=== PATIENT | male | born 1990 | race Caucasian/White ===

== ENCOUNTER 2016-11-16 15:54 | Inpatient (IN) | payer OTHER ==
[~2016-11-16] VITALS: Ht 188 cm; Wt 65.1 kg
[~2016-11-16 15:54] MED LIST: NICOTINE 21MG/24HR 1 EA TRANSDERMAL TD SCH; PRISTIQUE; TRAZ100T; TRAZ150T
[2016-11-16 17:00] LABS: MEAN CORPUSCULAR HEMOGLOBIN 29.6 pg (27.0-33.0); MEAN CORPUSCULAR HGB CONC 33.3 g/dl (32.0-36.5); MEAN CORPUSCULAR VOLUME 88.7 fl (80.0-96.0); RED CELL DISTRIBUTION WIDTH 13.1 % (11.5-14.5); WHITE BLOOD COUNT 6.5 K/mm3 (4.0-10.0)
[2016-11-16 17:13] LABS: AMPHETAMINES LEVEL URINE POSITIVE (NEGATIVE); BENZODIAZEPINES URINE POSITIVE (NEGATIVE); COCAINE METABOLITE URINE POSITIVE (NEGATIVE); CONTROL LINE INT CTR LINE PRESENT; METHADONE URINE POSITIVE (NEGATIVE); OPIATES URINE POSITIVE (NEGATIVE); TRICYCLIC ANTIDEPRESS URINE NEGATIVE (NEGATIVE)
[2016-11-16 17:27] LABS: ALBUMIN/GLOBULIN RATIO 1.48 (1.00-1.93); ALKALINE PHOSPHATASE 54 U/L (45-117); ALT/SGPT 16 U/L (12-78); ANION GAP 6 MEQ/L (8-16); AST/SGOT 6 U/L (15-37); BILIRUBIN,DIRECT 0.3 MG/DL (0.0-0.2); BILIRUBIN,TOTAL 1.4 MG/DL (0.2-1.0); BLOOD UREA NITROGEN 17 MG/DL (7-18); CALCIUM LEVEL 9.1 MG/DL (8.5-10.1); CARBON DIOXIDE LEVEL 30 MEQ/L (21-32); CHLORIDE LEVEL 109 MEQ/L (98-107); CREATININE FOR GFR 1.06 MG/DL (0.70-1.30); GLOMERULAR FILTRATION RATE > 60.0 (>60); GLUCOSE, FASTING 87 MG/DL (70-105); POTASSIUM SERUM 4.6 MEQ/L (3.5-5.1); SODIUM LEVEL 145 MEQ/L (136-145); TOTAL PROTEIN 6.7 GM/DL (6.4-8.2)
[2016-11-16] MEDS ORDERED: NICOTINE 21MG/24HR 1 EA TRANSDERMAL As Ordered ONE (18:14)
--- NOTE | 2016-11-16 19:51 | EDDOCDS ---
Physician Documentation [facility] Name: Gilbert Talley Age: 26 yrs Sex: Male : 1990 Arrival Date: 11/16/2016 Time: 15:54 Bed [facility] Private MD: Disposition: 11/16 18:37 Critical Care: Critical care not applicable. le Disposition: 11/16/16 18:48 Hospitalization ordered by Christel Starks for Inpatient Admission. Preliminary diagnosis are Major depressive disorder, recurrent, Suicidal ideations. - Bed requested for Admit. - Status is Inpatient Admission. slm - Condition is Stable. - Problem is an acute exacerbation. - Symptoms are unchanged. Historical: - Allergies: No known drug Allergies; - Home Meds: 1. Patient Denies taking any medications currently - PMHx: none; - PSHx: Tonsillectomy; - Social history: Smoking status: Patient uses tobacco products, heavy tobacco smoker. No barriers to communication noted. - Family history: Not pertinent. - : The pt / caregiver states he / she is not on anticoagulants. Home medication list is obtained from the patient. - Exposure Risk Screening:: None identified. Vital Signs: 16:14 BP 100 / 62; Pulse 95; Resp 16; Temp 98.6; Pulse Ox 99% ; Weight 69.85 kg / 153.99 lbs; [facility] Height 6 ft. 2 in. (187.96 cm); Pain 0/10; 19:45 BP 113 / 68; Pulse 84; Resp 18; Temp 98.4(TE); Pulse Ox 99% ; Pain 10/10; mas 16:14 Body Mass Index 19.77 (69.85 kg, 187.96 cm) [facility] MDM: 15:59 Consult PFS/PSA/Malt House Loader ordered. ml6 15:59 Consult PFS/PSA/Malt House Loader: Patient's case requires discussion with on-call 6 Psychiatrist ordered. 15:59 PSA/PFS to call Nursing Contemporary Or Modern Dancer, to enter patient data on [place] Safe Act if patient ml6 involuntarily admitted or transferred for SI or HI ordered. 15:59 Confirm accurate psychiatric medication list and times of last dosage ordered. ml6 15:59 Detain Pt Until Medically/PFS Cleared ordered. ml6 16:00 Acetaminophen Level Ordered. EDMS 16:00 Basic Metabolic Profile Ordered. EDMS 16:00 Complete Blood Count Ordered. EDMS 16:00 Drug Eval Toxicology ED Only Ordered. EDMS 16:00 Ethyl Alcohol (ethanol) Ordered. EDMS 16:00 Liver Profile Ordered. EDMS 16:00 Salicylate Level Ordered. EDMS 16:00 Thyroid Stimulating Hormone Ordered. EDMS 16:21 REGULAR DIET PLASTIC DUNBAR+DIET ordered. EDMS 17:41 Nicotine Patch 21 mg/24 hr 1 applic Transdermal once ordered. le 18:32 Acetaminophen Level Reviewed. le 18:32 Basic Metabolic Profile Reviewed. le 18:32 Drug Eval Toxicology ED Only Reviewed. le 18:32 Liver Profile Reviewed. le 18:32 Salicylate Level Reviewed. le 18:32 Complete Blood Count Reviewed. le 18:32 Ethyl Alcohol (ethanol) Reviewed. le 18:32 Thyroid Stimulating Hormone Reviewed. le 18:33 Consult PFS/PSA/Malt House Loader complete. ca 18:33 Consult PFS/PSA/Malt House Loader: Patient's case requires discussion with on-call ca Psychiatrist complete. 18:34 PSA/PFS to call Nursing Contemporary Or Modern Dancer, to enter patient data on [place] Safe [place] if patient ca involuntarily admitted or transferred for SI or HI complete. 18:37 The patient has been medically cleared for psychiatric evaluation, admission and/or le transfer. 18:44 OTHER CUSTOM DIETS+DIET ordered. EDMS 19:36 Admit to [facility]: ordered. EDMS 19:37 E Legal paperwork was scanned into [facility] and attached to record. ml4 Administered Medications: 18:45 Drug: Nicotine 1 applic [nicotine 21 mg/24 hr daily transdermal patch (1 patches)] [facility] Route: Transdermal; Site: right upper arm; Signatures: Dispatcher [employer] EDMS Mei Rodriguez, PSA PSA ca Anette Pride, PSA PSA ml4 Jo Mason, RUBBER TRIMMER RUBBER TRIMMER Ronnie Lopez, RN RN ml6 Emilee Melgoza RN RN [facility] Kita Harrell LPN LPN sl [facility]
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
[2016-11-16] MEDS ORDERED: MAALOX 30 ML SUSP *UDC PO PRN (20:15)
[2016-11-16] MEDS ORDERED: OXAZEPAM 15 MG CAP PO SCH (20:15)
[2016-11-16] MEDS ORDERED: MOM 30ML SUSPENSION UDC PO PRN (20:15)
[2016-11-16] MEDS: OLANZapine ORAL DISINTEGRATING TAB 5MG PO PRN (20:22)
[2016-11-16] MEDS ORDERED: OXAZEPAM 15 MG CAP PO PRN (20:30)
[2016-11-16 21:48] VITALS: BP 121/72
[2016-11-17 06:32] VITALS: BP 97/56
[2016-11-17] MEDS: NICOTINE 21MG/24HR 1 EA TRANSDERMAL TD SCH (08:18)
[2016-11-17] MEDS: OLANZapine ORAL DISINTEGRATING TAB 5MG PO PRN (08:18)
[2016-11-17 08:27] VITALS: BP 113/68
--- NOTE | 2016-11-17 11:20 | HPEPDOC ---
Medical History and Physical Date of Admission Nov 16, 2016 at 20:00 History and Physical PCP: Dr Russell ATTENDING: Dr. Casey Lizama HPI: 26yoM admitted to [facility] for unspecified depressive disorder, being medically examined today. Patient states he has mid back pain and low back pain. He denies neck pain. He reports no radiation of pain down the lower extremities. He denies weakness in lower extremities. No numbness or tingling in lower extremities. No loss of bowel or bladder control. He states he has had no previous imaging of his mid back or low back. Denies any fevers, chills, weakness, fatigue, MARTINEZ, CP, SOB, cough, palpitations, abdominal pain, N/V/D or changes in bowel or bladder habits. PMHx: Depression Anxiety Tobacco use Substance use Scoliosis PSHX: Tonsillectomy SOCHX: Resides in: [facility] Marital Status: Engaged Kids: 1 Employment: Works at [employer] Tobacco use: 2 packs per day ETOH: Denies Illicit Drugs: Heroin, OxyContin, hydrocodone, oxycodone, methadone, methamphetamine, Xanax IV Drug Use: Heroin, methamphetamine, oxycodone, OxyContin. States he was at [facility] 6 months ago. Has gone to "Rehab" x 7. Tattoos done unprofessionally: Denies FAMHX: Mother: Alive, currently hospitalized with hip surgery Father: , 6 years ago suicide- GSW. Siblings: Twin brothers Alive, well. Half brother, well. Children: Alive, well Unexpected deaths due to medical reasons: None. ROS: As noted in HPI, otherwise 11pt ROS of systems reviewed and unremarkable. PE: GEN: 26yoM, appears stated age. Well-nourished, well developed. No acute distress. Alert and oriented x 3. Pleasant, interactive. HEENT: Normocephalic, atraumatic. Pupils are equal, round, and reactive to light. Extraocular movements are intact. No nystagmus appreciated. Sclera are nonicteric. Conjunctiva without injection. Nose midline. Nasal turbinates without bogginess. EACs both patent BL. TMs both visualized and mandujano with good cone of light, no bulging or erythema. No facial asymmetry. Moist mucous membranes. Dentition fair. Pharynx pink and moist, no cobblestoning. Neck supple , trachea midline. No lymphadenopathy or thyromegaly appreciated. CHEST: Regular rate and rhythm, +S1, +S2 LUNGS: Clear to auscultation bilaterally. No wheezes, rales, or rhonchi. Breathing appears symmetric and easy. Patient is speaking in full sentences. No accessory muscle use. ABD: Flat, soft, non-distended. +Bowel sounds throughout. No TTP. No rebound or guarding. No costovertebral angle tenderness. EXT: Pulses 2+ bilaterally dorsalis pedis and radial. No lower extremity edema appreciated. SKIN: [place], dry, warm. Capillary refill <2sec. No rashes. NEURO: Alert and oriented x 3. Cranial nerves III-XII are intact. No focal deficits appreciated. Tenderness with palpation on exam over the thoracic spine and paraspinal muscles as well as the lumbar spine area and paraspinal muscles. There is normal strength in the lower extremities. Sensation to light touch is normal. He is ambulating in the hallway without any assistive devices and is able to get on and off the examination table without difficulty. Deep tendon reflexes at the knees are 2+ and symmetrical. EKG: Pending. A&P: 26yoM admitted to [facility] for unspecified depressive disorder 1. Psych. Plan per Psychiatry. Obtain baseline EKG to assure the safety of psychiatric medications as they can prolong the QT interval. 2. Nicotine dependence. Patch available. 3. Mid back pain. Check x-ray of the thoracic spine. 4. Low back pain. Check x-ray of the lumbosacral spine. 5. Follow up with PCP on discharge. Dr Russell. 6. Substance use. Withdrawal per psychiatry. Vital Signs Vital Signs Label Value Date Time Patient Temperature 95.2 degrees F 11/17/16 0632 Temperature Source Tympanic 11/17/16 0632 Pulse 85 11/17/16 0632 Respiratory Rate 18 bpm 11/17/16 0632 Blood Pressure Assessment 97/56 (70) 11/17/16 0632 Blood Pressure Assessment 113/68 (83) 11/17/16 0827 Laboratory Data Labs 24H Laboratory Tests 2 11/16/16 16:31: Acetaminophen Level < 2.0L, Aspartate Amino Transf (AST/SGOT) 6L, Alanine Aminotransferase (ALT/SGPT) 16, Alkaline Phosphatase 54, Total Bilirubin 1.4H, Direct Bilirubin 0.3H, Albumin 4.0, Albumin/Globulin Ratio 1.48, Anion Gap 6L, Calcium Level 9.1, Ethyl Alcohol Level < 0.003, Glomerular Filtration Rate > 60.0, Salicylates Level < 1.7L, Thyroid Stimulating Hormone (TSH) 1.190, Total Protein 6.7, Urine Amphetamine Level POSITIVEH, Urine Benzodiazepines Screen POSITIVEH, Urine Cannabinoids POSITIVEH, Urine Cocaine Metabolite POSITIVEH, Urine Opiates Screen POSITIVEH, Urine Barbiturates, Qualitative NEGATIVE, Urine Methadone Screen POSITIVEH, Urine Tricyclic Antidepressants NEGATIVE CBC/BMP Laboratory Tests 11/16/16 16:31 Red Blood Count 5.23, Mean Corpuscular Volume 88.7, Mean Corpuscular Hemoglobin 29.6, Mean Corpuscular Hemoglobin Concent 33.3, Red Cell Distribution Width 13.1 Home Medications No Active Prescriptions or Reported Meds Allergies Coded Allergies: No Known Drug Allergy (Verified Allergy, Unknown, 08/22/15) Viki Hendrix Nov 17, 2016 11:20
[2016-11-17 12:19] VITALS: BP 121/70
--- NOTE | 2016-11-17 17:13 | REP ---
Thoracic spine series: Two views: History: Thoracic spine pain. Findings: AP and lateral views show preserved vertebral body heights. Pedicles and posterior elements are intact. Alignment is normal. No paravertebral soft-tissue mass or swelling is seen. Impression: Negative thoracic spine series. Signed by Milton Henderson MD 11/18/2016 09:39 A
--- NOTE | 2016-11-17 17:18 | REP ---
Lumbar spine series: Five views: History: Lumbar spine pain. Findings: There is a minimal dextroconvex upper lumbar curve. Lumbar vertebral body heights are preserved. There is a bilateral L5 spondylolysis noted. There is a 3 mm L5-S1 grade 1 spondylolisthesis. Pedicles and posterior elements are otherwise intact. Sacrum and SI joints are unremarkable. Psoas margins are symmetric. Impression: Bilateral L5 spondylolysis and grade 1, 3 mm L5-S1 spondylolisthesis. No acute bony abnormality seen. Signed by Milton Henderson MD 11/18/2016 09:40 A
[2016-11-17] MEDS ORDERED: LOPERAMIDE 2 MG CAP PO PRN (17:45)
[2016-11-17] MEDS ORDERED: METHOCARBAMOL 750 MG TAB PO PRN (17:45)
[2016-11-17] MEDS ORDERED: ONDANSETRON 4 MG TAB (S0181) PO PRN (17:45)
[2016-11-17 18:00] VITALS: BP 112/70
[2016-11-17] MEDS: DIVALPROEX 250MG *ER* TAB PO SCH (19:12)
[2016-11-17] MEDS ORDERED: OXAZEPAM 15 MG CAP PO ONE (19:15)
[2016-11-17] MEDS: GABAPENTIN 100 MG CAP PO SCH (21:04)
[2016-11-17] MEDS: OXAZEPAM 10 MG CAP PO SCH (21:04)
[2016-11-17] MEDS: traZODone 50 MG TAB PO PRN (21:05)
[2016-11-17] MEDS: cloNIDine 0.1 MG TAB PO PRN (21:08)
[2016-11-17] MEDS: ACETAMINOPHEN TAB 650MG DOSE (2X325MG) PO PRN (23:41)
[2016-11-17 23:48] VITALS: BP 116/64
[2016-11-18] MEDS: GABAPENTIN 100 MG CAP PO SCH ×3 (06:06→20:43)
[2016-11-18 06:30] VITALS: BP 105/73
[2016-11-18] MEDS: NICOTINE 21MG/24HR 1 EA TRANSDERMAL TD SCH (09:00)
[2016-11-18] MEDS: DIVALPROEX 250MG *ER* TAB PO SCH ×2 (09:21→20:41)
[2016-11-18] MEDS: OXAZEPAM 10 MG CAP PO SCH ×2 (09:21→20:42)
[2016-11-18] MEDS: ACETAMINOPHEN TAB 650MG DOSE (2X325MG) PO PRN ×2 (09:22→20:42)
[2016-11-18 12:26] VITALS: BP 132/59
[2016-11-18] MEDS: cloNIDine 0.1 MG TAB PO PRN ×2 (14:12→22:48)
--- NOTE | 2016-11-18 18:10 | ECGEPIP ---
Stationary ECG Study [facility] Test Date: 2016-11-17 Pat Name: SALIMA GUILLORY Department: Room: [place] [address] Gender: M Ampoule Examiner: AILYN : 1990 Requested By: Viki Hendrix Order Number: [id number] Reading MD: Winston Begum Measurements Intervals [place] Rate: 84 P: 76 DC: 148 QRS: 81 QRSD: 89 T: 76 QT: 359 QTc: 425 Interpretive Statements SINUS RHYTHM WITH SINUS ARRHYTHMIA NO PRIOR TRACING IN THE SYSTEM Electronically Signed On 11-18-2016 18:09:58 EST by Winston Begum
[2016-11-18 18:17] VITALS: BP 130/68
[2016-11-18] MEDS: traZODone 50 MG TAB PO PRN (20:41)
--- NOTE | 2016-11-18 20:51 | EDDOCDS ---
Physician Documentation [facility] Name: Gilbert Talley Age: 26 yrs Sex: Male : 1990 Arrival Date: 11/16/2016 Time: 15:54 Bed [facility] Private MD: Disposition: 11/16 18:37 Critical Care: Critical care not applicable. le Disposition: 11/16/16 18:48 Hospitalization ordered by Christel Starks for Inpatient Admission. Preliminary diagnosis are Major depressive disorder, recurrent, Suicidal ideations. - Bed requested for Admit. - Status is Inpatient Admission. slm - Condition is Stable. - Problem is an acute exacerbation. - Symptoms are unchanged. Historical: - Allergies: No known drug Allergies; - Home Meds: 1. Patient Denies taking any medications currently - PMHx: none; - PSHx: Tonsillectomy; - Social history: Smoking status: Patient uses tobacco products, heavy tobacco smoker. No barriers to communication noted. - Family history: Not pertinent. - : The pt / caregiver states he / she is not on anticoagulants. Home medication list is obtained from the patient. - Exposure Risk Screening:: None identified. Vital Signs: 16:14 BP 100 / 62; Pulse 95; Resp 16; Temp 98.6; Pulse Ox 99% ; Weight 69.85 kg / 153.99 lbs; [facility] Height 6 ft. 2 in. (187.96 cm); Pain 0/10; 19:45 BP 113 / 68; Pulse 84; Resp 18; Temp 98.4(TE); Pulse Ox 99% ; Pain 10/10; mas 16:14 Body Mass Index 19.77 (69.85 kg, 187.96 cm) [facility] MDM: 15:59 Consult PFS/PSA/Mica [employer]er Blasting ordered. ml6 15:59 Consult PFS/PSA/Mica Miner Blasting: Patient's case requires discussion with on-call 6 Psychiatrist ordered. 15:59 PSA/PFS to call Nursing Manager Psychology, to enter patient data on [place] Safe Act if patient ml6 involuntarily admitted or transferred for SI or HI ordered. 15:59 Confirm accurate psychiatric medication list and times of last dosage ordered. ml6 15:59 Detain Pt Until Medically/PFS Cleared ordered. ml6 16:00 Acetaminophen Level Ordered. EDMS 16:00 Basic Metabolic Profile Ordered. EDMS 16:00 Complete Blood Count Ordered. EDMS 16:00 Drug Eval Toxicology ED Only Ordered. EDMS 16:00 Ethyl Alcohol (ethanol) Ordered. EDMS 16:00 Liver Profile Ordered. EDMS 16:00 Salicylate Level Ordered. EDMS 16:00 Thyroid Stimulating Hormone Ordered. EDMS 16:21 REGULAR DIET PLASTIC DUNBAR+DIET ordered. EDMS 17:41 Nicotine Patch 21 mg/24 hr 1 applic Transdermal once ordered. le 18:32 Acetaminophen Level Reviewed. le 18:32 Basic Metabolic Profile Reviewed. le 18:32 Drug Eval Toxicology ED Only Reviewed. le 18:32 Liver Profile Reviewed. le 18:32 Salicylate Level Reviewed. le 18:32 Complete Blood Count Reviewed. le 18:32 Ethyl Alcohol (ethanol) Reviewed. le 18:32 Thyroid Stimulating Hormone Reviewed. le 18:33 Consult PFS/PSA/Mica [employer]er Blasting complete. ca 18:33 Consult PFS/PSA/Mica [employer]er Blasting: Patient's case requires discussion with on-call ca Psychiatrist complete. 18:34 PSA/PFS to call Nursing Manager Psychology, to enter patient data on [place] Safe [place] if patient ca involuntarily admitted or transferred for SI or HI complete. 18:37 The patient has been medically cleared for psychiatric evaluation, admission and/or le transfer. 18:44 OTHER CUSTOM DIETS+DIET ordered. EDMS 19:36 Admit to [facility]: ordered. EDMS 19:37 MHE Legal paperwork was scanned into [employer] and attached to record. ml4 11/17 11:49 T-Sheet-- Draft Copy was scanned into [employer] and attached to record. gb Administered Medications: 11/16 18:45 Drug: Nicotine 1 applic [nicotine 21 mg/24 hr daily transdermal patch (1 patches)] [facility] Route: Transdermal; Site: right upper arm; Signatures: Dispatcher [employer] EDMS Mei Rodriguez, PSA PSA ca Lissy Yoon, Reg Reg gb Anette Pride, PSA PSA ml4 Jo Mason, METER MAKER Ronnie Argueta, RN RN ml6 Emilee Melgoza RN RN [facility] Kita Harrell LPN LPN slm The chart was reviewed and I authenticate all verbal orders and agree with the evaluation and treatment provided.Attachments: 11/17 11:49 T-Sheet-- Draft Copy gb Chart Complete MTDD
--- NOTE | 2016-11-18 20:51 | EDDOCDS ---
Nurse's Notes [facility] Name: Gilbert Talley Age: 26 yrs Sex: Male : 1990 Arrival Date: 11/16/2016 Time: 15:[address] MD: Diagnosis: Major depressive disorder, recurrent;Suicidal ideations Presentation: 11/16 16:12 Presenting complaint: Patient states: I don't know why I'm here, I saidsomething [facility] stupid, cant remember what it was and my grandmother called the tanning drum operator, she's the copyist caller, I was angry and I can't remember what I said. Mental Health Triage Level: Level 2: The patient was brought to the ED for evaluation because of a legal pickup order. Adult Sepsis Screening: The patient does not have new or worsening altered mentation. Patient's respiratory rate is less than 22. Systolic blood pressure is greater than 100. Patient has a qSOFA score of 0- Negative Sepsis Screen. Suicide/Homicide risk assessment- Patient denies SI and HI but presents with another emotional, behavioral or other mental health complaint. Status: Patient is not a propulsion machinery service engineer or dependent. Transition of care: patient was not received from another setting of care. 16:12 Acuity: RILEY Level 3 [facility] 16:12 Method Of Arrival: Police Car [facility] Triage Assessment: 16:14 General: Appears in no apparent distress, comfortable, slender, Behavior is sullen. [facility] Pain: Denies pain. HIV screening NA for this visit Offered previously. The patient is triaged at the bedside. See Assessment in Nurses Notes section of ED record. Neurological: Level of Consciousness is awake, alert, Oriented to person, place, time. Respiratory: Airway is patent Respiratory effort is even, unlabored, Respiratory pattern is regular, symmetrical. Derm: Skin is pink, warm & dry. Musculoskeletal: Range of motion intact in all extremities. Historical: - Allergies: No known drug Allergies; - Home Meds: 1. Patient Denies taking any medications currently - PMHx: none; - PSHx: Tonsillectomy; - Social history: Smoking status: Patient uses tobacco products, heavy tobacco smoker. No barriers to communication noted. - Family history: Not pertinent. - : The pt / caregiver states he / she is not on anticoagulants. Home medication list is obtained from the patient. - Exposure Risk Screening:: None identified. Screenin:16 Screening information is obtained from the patient. Fall risk: No risks identified. [facility] Assistance ADL's: requires no assistance with activities of daily living. Abuse/DV Screen: The patient / caregiver reports he/she is: not in a situation that causes fear, pain or injury. Nutritional screening: No deficits noted. Advance Directives: There is no active DNR order. home support is adequate. Assessment: 16:16 General: see bedside triage assessment. [facility] 17:30 General: utilizing phone, states feeling better since speaking with girlfriend. [facility] Provider informed regarding request for pain patch, will continue to monitor. 19:32 General: Appears in no apparent distress, comfortable, Behavior is appropriate for age, slm cooperative. General: pt sitting on stretcher s/o in room security observing . Respiratory: Airway is patent Respiratory effort is even, unlabored. 19:48 Reassessment: Patient appears in no apparent distress at this time. General: Appears in slm no apparent distress, Behavior is cooperative. General: pt transferred to [facility] at this time . Respiratory: Airway is patent Respiratory effort is even, unlabored. Mental Health Eval: 17:39 Mental health consult is initiated at 17:39. Status: The patient is not a md propulsion machinery service engineer or dependent. [facility] Behavioral Health: The patient is not an established patient of [facility] Behavioral Health. Referral Information: Evaluation referral is generated by a police agency: [employer] on . The patient was referred for evaluation because Police called by family after pt made suicidal threat and put gun in his mouth. Grandmother, with whom pt lives, also found a number of loose pills on the kitchen counter which pt acknowledged are his. Pt has a long hx of substance abuse. 17:53 Subjective: The patients chief complaint is Pt denies SI or HI. Appears angry, stating ca "My grandmother said that, didn't she?" Pt says he was upset about his relationship with GF, has now made up with her and "I'm fine." GM reported to police pt had been threatening to kill himself and had actually placed a gun in his mouth today. A number of loose pills were found at his home which pt acknowledged were his. Pt also admits there are guns in the house but continues to deny he threatened himself with one. Pt adds that "I just said something stupid, but denies he remembers what he said today." Police confirm there are guns in the household. Delusions are denied. Patient's mood is angry, anxious, depressed, irritable, Hallucinations are denied. Pt has significant hx of substance abuse and has been treated in outpt clinics for same. Today, tox screen is positive for a number of substances, which pt refuses to discuss. Pt is angry, demands he be allowed to leave when his GF arrives. Explained to pt that the doctor will decide if further care and hospitalization is needed. Pt threatening to do something that will send him to nursing home because that is where he'd rather be. Pt's father committed suicide 6 years ago. Pt was hospitalized shortly thereafter for the first time. Mental Health history: depression, abusing prescription drugs. marijuana. cocaine. methamphetamine. heroin. narcotics. methadone, benzodiazepines . suicide attempt by Stabbed self superficially in abdomen in 2009 and cut self. Mental Health Admissions: [facility] 2009 for SI and attempt Current Outpatient Mental Health Services: None. Current living environment is Family / Home Support: Poor supports The patient is single. Patient presents to Emergency Department with the following symptoms within the past 2 weeks: anger, depressed mood, drug abuse, non-compliance, poor impulse control, relational problem, suicidal ideation with attempt/gesture by gunshot. Reportedly placed gun in mouth today and told his grandmother he would shoot himself. Substance abuse: Patient uses benzodiazepines Patient uses cocaine, Patient uses heroin Patient uses marijuana Patient uses methamphetamines Patient uses opiates Patient uses tobacco. Mental status exam: Patients appearance is disheveled Patient's behavior is superficially cooperative Speech is normal. Affect is labile. Mood is angry. irritable. Hallucinations are denied. Appetite is erratic Memory is fair. Energy level is normal. Content of thought is Depressive Thought process is intact. Cognitive level is oriented to person, place, time and situation Patient's insight is poor. Judgement is poor. Rapport with interviewer is poor. guarded. hostile. Suicidal Ideation is denied. Homicidal ideation is denied. Disposition: Medically cleared for disposition by Jo CHAO Psychiatric Consult is performed by phone with Dr Christel Starks. [facility] Admission Criteria: The patient is experiencing suicidal ideation. 18:43 Legal Status: Patient's legal status will be Emergency admission: 9.39. [place] Safe Act: [facility] Safe Act is applicable to this patient. The patient poses a risk to self or other and the Nursing Fox Farmer has been notified. He/She will enter the patient's data. DSM-V Differential Diagnosis: Unspecified Depressive Disorder (F32.9) Cannabis Use Disorder, Opioid Use Disorder, Sedative, Hypnotic or Anxiolytic Use Disorder, Stimulant Use Disorder. 18:49 Narrative: Pt has had at least 2 previous rehabs at [facility] at age 18. md 11/17 16:20 Insurance Pre-Certification: approved by: Tina at [facility]. Pt is authorized for 5 md days (11/16-11/20) with review on 11/20. Reviewer has yet to be assigned. Auth number [id number]. Vital Signs: 11/16 16:14 BP 100 / 62; Pulse 95; Resp 16; Temp 98.6; Pulse Ox 99% ; Weight 69.85 kg; Height 6 ft. [facility] 2 in. (187.96 cm); Pain 0/10; 19:45 BP 113 / 68; Pulse 84; Resp 18; Temp 98.4(TE); Pulse Ox 99% ; Pain 10/10; mas 16:14 Body Mass Index 19.77 (69.85 kg, 187.96 cm) [facility] Vitals: 16:14 Log In time N/A- police car arrival. [facility] ED Course: 15:55 Patient visited by Yanelis Montes. gjb 15:55 Patient moved to Waiting gjb 15:56 Patient moved to [address] 16:06 Patient visited by Ray Nath Security Aide. pjf 16:13 Patient visited by Ray Nath Security Aide. pjf 16:13 Triage Initiated [facility] 16:14 Pt greeted and oriented to ED. Patient advised of names of staff involved in care, pj location of call owens, wait times and NPO status. Accompanied by Law Enforcement, (desp) 9.41. Property removed, secured in belongings bag- Placed in locker #3. Door closed. Noise minimized. Visitors limited. Report received from rn - psych. triage level #2, +si, cooperative \\T\\ this time. The patient / caregiver is instructed regarding the plan of care and ED course. Psych Safety Check: Location: Psych Room. 16:30 Psych Safety Check: Location: Psych Room. Visual Assessment: Cooperative. pjf 16:48 Patient visited by Ray Nath Security Aide. pjf 16:50 [facility] FNP [facility] le 17:06 Patient visited by Jo Mason FNP. le 17:06 Patient visited by Jo Mason FNP. le 17:12 Patient visited by Ray Nath Security Aide. pjf 17:37 Patient visited by Ray Nath Security Aide. pjf 17:52 Patient visited by Anette Pride PSA. ml4 18:04 Patient visited by Ray Nath Security Aide. pjf 18:17 Patient visited by Ray Nath Security Aide. pjf 18:36 Patient visited by Ray Nath Security Aide. pjf 18:47 Christel Starks is Hospitalizing Provider. le 18:56 Patient visited by Angelo Medina. mas 18:57 Kita Harrell LPN is Primary Nurse. slm 19:32 Patient visited by Angelo Medina. mas 19:33 Patient visited by Kita Harrell LPN. [facility] 19:37 E Legal paperwork was scanned into [employer] and attached to record. ml4 19:46 Patient visited by Angelo Medina. mas 19:49 No IV's were initiated during this patient's visit. No procedures done that require slm assistance. 19:50 Patient visited by Kita Harrell LPN. [facility] 11/17 11:49 T-Sheet-- Draft Copy was scanned into [employer] and attached to record. gb Administered Medications: 11/16 18:45 Drug: Nicotine 1 applic [nicotine 21 mg/24 hr daily transdermal patch (1 patches)] [facility] Route: Transdermal; Site: right upper arm; Attachments: 19:37 MHE Legal paperwork ml4 Order Results: Lab Order: Acetaminophen Level; SPEC'M 11/16/16 16:31 Test: ACETAMINOPHEN LEVEL; Value: < 2.0; Range: 10.0-30.0; Abnormal: Below low normal; Units: UG/ML; Status: F Lab Order: Basic Metabolic Profile; SPEC'M 11/16/16 16:31 Test: GLUCOSE, FASTING; Value: 87; Range: 70-105; Units: MG/DL; Status: F Test: BLOOD UREA NITROGEN; Value: 17; Range: 7-18; Units: MG/DL; Status: F Test: CREATININE FOR GFR; Value: 1.06; Range: 0.70-1.30; Units: MG/DL; Status: F Test: GLOMERULAR FILTRATION RATE; Value: > 60.0; Range: >60; Status: F Test: SODIUM LEVEL; Value: 145; Range: 136-145; Units: MEQ/L; Status: F Test: POTASSIUM SERUM; Value: 4.6; Range: 3.5-5.1; Units: MEQ/L; Status: F Test: CHLORIDE LEVEL; Value: 109; Range: 98-107; Abnormal: Above high normal; Units: MEQ/L; Status: F Test: CARBON DIOXIDE LEVEL; Value: 30; Range: 21-32; Units: MEQ/L; Status: F Test: ANION GAP; Value: 6; Range: 8-16; Abnormal: Below low normal; Units: MEQ/L; Status: F Test: CALCIUM LEVEL; Value: 9.1; Range: 8.5-10.1; Units: MG/DL; Status: F Test Note: ; Units are mL/min/1.73 m2 Chronic Kidney Disease Staging per NKF: Stage I & II GFR >=60 Normal to Mildly Decreased Stage III GFR 30-59 Moderately Decreased Stage IV GFR 15-29 Severely Decreased Stage V GFR <15 Very Little GFR Left ESRD GFR <15 on SUPERVISOR COFFEE Lab Order: Complete Blood Count; SPEC'M 11/16/16 16:31 Test: WHITE BLOOD COUNT; Value: 6.5; Range: 4.0-10.0; Units: K/mm3; Status: F Test: RED BLOOD COUNT; Value: 5.23; Range: 4.30-6.10; Units: M/mm3; Status: F Test: HEMOGLOBIN; Value: 15.4; Range: 14.0-18.0; Units: g/dl; Status: F Test: HEMATOCRIT; Value: 46.3; Range: 42.0-52.0; Units: %; Status: F Test: MEAN CORPUSCULAR VOLUME; Value: 88.7; Range: 80.0-96.0; Units: fl; Status: F Test: MEAN CORPUSCULAR HEMOGLOBIN; Value: 29.6; Range: 27.0-33.0; Units: pg; Status: F Test: MEAN CORPUSCULAR HGB CONC; Value: 33.3; Range: 32.0-36.5; Units: g/dl; Status: F Test: RED CELL DISTRIBUTION WIDTH; Value: 13.1; Range: 11.5-14.5; Units: %; Status: F Test: PLATELET COUNT, AUTOMATED; Value: 245; Range: 150-450; Units: k/mm3; Status: F Lab Order: Drug Eval Toxicology ED Only; SPEC'M 11/16/16 16:31 Test: AMPHETAMINES LEVEL URINE; Value: POSITIVE; Range: NEGATIVE; Abnormal: Above high normal; Status: F Test: BARBITURATES URINE; Value: NEGATIVE; Range: NEGATIVE; Status: F Test: BENZODIAZEPINES URINE; Value: POSITIVE; Range: NEGATIVE; Abnormal: Above high normal; Status: F Test: CANNABINOIDS URINE; Value: POSITIVE; Range: NEGATIVE; Abnormal: Above high normal; Status: F Test: COCAINE METABOLITE URINE; Value: POSITIVE; Range: NEGATIVE; Abnormal: Above high normal; Status: F Test: METHADONE URINE; Value: POSITIVE; Range: NEGATIVE; Abnormal: Above high normal; Status: F Test: OPIATES URINE; Value: POSITIVE; Range: NEGATIVE; Abnormal: Above high normal; Status: F Test: TRICYCLIC ANTIDEPRESS URINE; Value: NEGATIVE; Range: NEGATIVE; Status: F Test Note: ; FALSE POSITIVE RESULTS CAN BE CAUSED BY THE USE OF PANTOPRAZOLE (PROTONIX). Lab Order: Ethyl Alcohol (ethanol); SPEC'M 11/16/16 16:31 Test: ETHYL ALCOHOL (ETHANOL); Value: < 0.003; Range: 0.000-0.010; Units: %; Status: F Lab Order: Liver Profile; SPEC'M 11/16/16 16:31 Test: AST/SGOT; Value: 6; Range: 15-37; Abnormal: Below low normal; Units: U/L; Status: F Test: ALT/SGPT; Value: 16; Range: 12-78; Units: U/L; Status: F Test: ALKALINE PHOSPHATASE; Value: 54; Range: 45-117; Units: U/L; Status: F Test: BILIRUBIN,TOTAL; Value: 1.4; Range: 0.2-1.0; Abnormal: Above high normal; Units: MG/DL; Status: F Test: BILIRUBIN,DIRECT; Value: 0.3; Range: 0.0-0.2; Abnormal: Above high normal; Units: MG/DL; Status: F Test: TOTAL PROTEIN; Value: 6.7; Range: 6.4-8.2; Units: GM/DL; Status: F Test: ALBUMIN; Value: 4.0; Range: 3.2-5.2; Units: GM/DL; Status: F Test: ALBUMIN/GLOBULIN RATIO; Value: 1.48; Range: 1.00-1.93; Status: F Lab Order: Salicylate Level; SPEC'M 11/16/16 16:31 Test: SALICYLATE LEVEL; Value: < 1.7; Range: 5.0-30.0; Abnormal: Below low normal; Units: MG/DL; Status: F Lab Order: Thyroid Stimulating Hormone; SPEC'M 11/16/16 16:31 Test: THYROID STIMULATING HORMONE; Value: 1.190; Range: 0.358-3.740; Units: uIU/ML; Status: F Outcome: 11/16 18:48 Decision to Hospitalize by Provider. le 19:49 Discharge Assessment: Patient awake, alert and oriented x 3. No cognitive and/or slm functional deficits noted. Patient verbalized understanding of disposition instructions. patient administered narcotics - no. The following High Risk Discharge criteria are identified: None. Admitted to Psych accompanied by tech, via wheelchair, with chart. Condition: stable. No special radiology studies were completed. 19:50 Patient left the ED. slm Signatures: Madelin Mathis, Mei Joseph RN, PSA PSA Lissy Alvarado, Reg Reg Ray Singh, Security Aide Securpjf Anette Pride, PSA PSA ml4 Jo Mason, CHARTER COACH DRIVER CHARTER COACH DRIVER Angelo Fu Jane, RN RN Kita Enciso LPN LPN [facility] Yanelis Montes gjb Chart Complete MTDD
--- NOTE | 2016-11-18 20:51 | EDDOCDS ---
Physician Documentation [facility] Name: Gilbert Talley Age: 26 yrs Sex: Male : 1990 Arrival Date: 11/16/2016 Time: 15:54 Bed RUST3 Private MD: Disposition: 11/16 18:37 Critical Care: Critical care not applicable. le Disposition: 11/16/16 18:48 Hospitalization ordered by Christel Starks for Inpatient Admission. Preliminary diagnosis are Major depressive disorder, recurrent, Suicidal ideations. - Bed requested for Admit. - Status is Inpatient Admission. slm - Condition is Stable. - Problem is an acute exacerbation. - Symptoms are unchanged. Historical: - Allergies: No known drug Allergies; - Home Meds: 1. Patient Denies taking any medications currently - PMHx: none; - PSHx: Tonsillectomy; - Social history: Smoking status: Patient uses tobacco products, heavy tobacco smoker. No barriers to communication noted. - Family history: Not pertinent. - : The pt / caregiver states he / she is not on anticoagulants. Home medication list is obtained from the patient. - Exposure Risk Screening:: None identified. Vital Signs: 16:14 BP 100 / 62; Pulse 95; Resp 16; Temp 98.6; Pulse Ox 99% ; Weight 69.85 kg / 153.99 lbs; [facility] Height 6 ft. 2 in. (187.96 cm); Pain 0/10; 19:45 BP 113 / 68; Pulse 84; Resp 18; Temp 98.4(TE); Pulse Ox 99% ; Pain 10/10; mas 16:14 Body Mass Index 19.77 (69.85 kg, 187.96 cm) [facility] MDM: 15:59 Consult PFS/PSA/Sales Development Representative ordered. ml6 15:59 Consult PFS/PSA/Sales Development Representative: Patient's case requires discussion with on-call 6 Psychiatrist ordered. 15:59 PSA/PFS to call Nursing Marketing Services Coordinator, to enter patient data on [place] Safe Act if patient ml6 involuntarily admitted or transferred for SI or HI ordered. 15:59 Confirm accurate psychiatric medication list and times of last dosage ordered. ml6 15:59 Detain Pt Until Medically/PFS Cleared ordered. ml6 16:00 Acetaminophen Level Ordered. EDMS 16:00 Basic Metabolic Profile Ordered. EDMS 16:00 Complete Blood Count Ordered. EDMS 16:00 Drug Eval Toxicology ED Only Ordered. EDMS 16:00 Ethyl Alcohol (ethanol) Ordered. EDMS 16:00 Liver Profile Ordered. EDMS 16:00 Salicylate Level Ordered. EDMS 16:00 Thyroid Stimulating Hormone Ordered. EDMS 16:21 REGULAR DIET PLASTIC DUNBAR+DIET ordered. EDMS 17:41 Nicotine Patch 21 mg/24 hr 1 applic Transdermal once ordered. le 18:32 Acetaminophen Level Reviewed. le 18:32 Basic Metabolic Profile Reviewed. le 18:32 Drug Eval Toxicology ED Only Reviewed. le 18:32 Liver Profile Reviewed. le 18:32 Salicylate Level Reviewed. le 18:32 Complete Blood Count Reviewed. le 18:32 Ethyl Alcohol (ethanol) Reviewed. le 18:32 Thyroid Stimulating Hormone Reviewed. le 18:33 Consult PFS/PSA/Sales Development Representative complete. ca 18:33 Consult PFS/PSA/Sales Development Representative: Patient's case requires discussion with on-call ca Psychiatrist complete. 18:34 PSA/PFS to call Nursing Marketing Services Coordinator, to enter patient data on [place] Safe [place] if patient ca involuntarily admitted or transferred for SI or HI complete. 18:37 The patient has been medically cleared for psychiatric evaluation, admission and/or le transfer. 18:44 OTHER CUSTOM DIETS+DIET ordered. EDMS 19:36 Admit to [facility]: ordered. EDMS 19:37 MHE Legal paperwork was scanned into [employer] and attached to record. ml4 11/17 11:49 T-Sheet-- Draft Copy was scanned into [employer] and attached to record. gb Administered Medications: 11/16 18:45 Drug: Nicotine 1 applic [nicotine 21 mg/24 hr daily transdermal patch (1 patches)] [facility] Route: Transdermal; Site: right upper arm; Signatures: Dispatcher [employer] EDMS Mei Rodriguez, PSA PSA ca Lissy Yoon, Reg Reg gb Anette Pride, PSA PSA ml4 Jo Mason, COMPUTER NETWORK SUPPORT SPECIALIST Ronnie Argueta, RN RN ml6 Emilee Melgoza RN RN [facility] Kita Harrell LPN LPN slm The chart was reviewed and I authenticate all verbal orders and agree with the evaluation and treatment provided.Attachments: 11/17 11:49 T-Sheet-- Draft Copy gb Chart Complete MTDD
[2016-11-18 21:30] VITALS: BP 130/80
[2016-11-18 22:48] VITALS: BP 130/72
[2016-11-19] MEDS: GABAPENTIN 100 MG CAP PO SCH ×3 (06:17→21:01)
[2016-11-19 06:43] VITALS: BP 90/50
--- NOTE | 2016-11-19 06:57 | HPEPDOC ---
[facility] History & Physical History and Physical DATE OF ADMISSION: Nov 16, 2016 at 20:00 Patient was seen and this note reflects findings from 11/17/2016. 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 Patient presented by police escort to [facility] emergency department for evaluation after suicidal gesture. Police were called by patient's maternal grandmother who reported patient had a gun to his head and was making suicidal statements. Patient is currently living with his maternal grandparents. This in the context of current opiate, benzodiazepine , cocaine, amphetamine, and cannabis recent use. Patient was UDS positive for the stated illicit substances. Patient is restricted and details of identifying any triggers for this suicidal behavior. He reports history of chronic back pain due to diagnosis of scoliosis as his reasoning for these. He reports his substance abuse started approximately 5 years ago in an attempt to manage his pain. Patient recently discharged from [facility] rehabilitation. Patient reports no use of drug of choice IV heroin since his discharge from [facility] 6 months ago. Patient identifies that he has substituted the above-mentioned mentioned substances in lieu of IV heroin. Patient reports current use of by mouth Xanax and oxycodone tablets which she gets from the streets. He denies use of alcohol. He reports frequent use of cocaine that a mean and cannabis as well. Reports no depressive symptoms during interview. Affect is superficially bright. Patient is superficially in her view. Patient is focused on discharge. Of note patient's father committed suicide by gunshot wound 6 years ago. She does not identify this as a stressor. Patient was hospitalized after father's suicide. In 2009 he was hospitalized for suicide attempt by stabbing himself. Patient prescribed olanzapine he reports being noncompliant with medication immediately after discharge. Patient minimizes the suicide gesture which prompted his grandmother to call police. X-ray of lumbar and thoracic spine taken. These labs were within normal limits per radiology. Patient also has current legal stressors including a court hearing scheduled this week. Patient recently arrested for DWAI. He denies this was secondary to alcohol intoxication. He reports this is secondary to cannabis intoxication. Also patient recently given notice of an order of protection requested by his maternal grandmother. He is not to return to their home. PAST PSYCHIATRIC HISTORY: Prior Psychiatric Disorder: Polysubstance abuse, Depression Out Patient Treatment: none Suicidal/Self injurious: Patient has hx of suicide attempt in 2009 after of father who committed suicide Psychotropic Medication History: none since 2009 psychiatric admission for SA by stabbing self PMHx: Depression Anxiety Tobacco use Substance use Scoliosis PSHX: Tonsillectomy SOCHX: Resides in: [facility] with maternal grandparents Marital Status: Engaged Kids: 1 Employment: Works at [employer] Tobacco use: 2 packs per day ETOH: Denies Illicit Drugs: hx of IVHeroin use reports none for 6 months since [facility] inpatient rehab d/c. Also: current use of OxyContin, hydrocodone, oxycodone, methadone, methamphetamine, Xanax IV Drug Use: Heroin, methamphetamine, oxycodone, OxyContin. States he was at [facility] 6 months ago. Has gone to "Rehab" x 7. Tattoos done unprofessionally: Denies FAMHX: Mother: Alive, currently hospitalized with hip surgery Father: , 6 years ago suicide- GSW. Siblings: Twin brothers Alive, well. Half brother, well. Children: Alive, well Unexpected deaths due to medical reasons: None. SUBSTANCE ABUSE HISTORY: Patient reports hx of Scoliosis dx and chronic back pain. He reports his use of pain pills given him by a friend started his abuse of drugs approx. 4yrs ago. LEGAL HISTORY: Court hearing this week for recent DWAI, will miss due to this admission. ALLERGIES: Please see below. LABORATORY DATA: Please see below. MENTAL STATUS EXAMINATION: Patient is a 26year-old male, thin, anxious , tremulous who appears stated age. Speech: Is rapid in rate, volume, and articulation, and is coherent and spontaneous. Language skills are intact. Thought processes: linear/Goal directed. Thought content: focused on discharge Abstract reasoning, and computation: intact. Description of associations: appropriate. Description of abnormal or psychotic thoughts:no perceptual issues noted. Judgment: limited ,. Insight: very limited. Orientation to time, place and person is intact. Recent and remote memory: . Immediate short-term and long- term memory is: intact. Attention span and concentration: good . Language: Normal. Fund of knowledge- appropriate Mood: restricted Affect: constricted PROBLEM LIST: 1. Chronic substance use d/o symptoms. 2. recent legal issue- DWAI and order of protection. 3. recently homeless due to order of protection. 4. financial issues. DIAGNOSES: 1. Opioid use d/o, severe 2. Opioid w/d 3. Benzo use d/o, severe 4. Benzo w/d 5. Cannabis use d/o, severe 6. Amphetamine& Cocaine use d/o,severe 7. Depressive d/o, unspecified 8. r/o Bipolar 2 d/o. PLAN: 1.~ ~ Patient was admitted on a 30 legal status, 2.~ ~ Complete history was obtained. 3.~ ~ With patients permission, will be contacted for collateral information. 4.~ ~ Initiate CIWA-B monitoring Start Serax 30mg po BID for noted signs of Benzo w/d. D/C Olanzapine scheduled and PRN doses as this med decreases seizure threshold. Initiate opioid withdrawal medication regimen: Zofran 4mg po BID PRN nausea Loperamide 2mg PRN loose stools Methocarbamol 750mg po q6hr PRN muscle spasm Clonidine 0.1mg po TID PRN sweats, fever, tremor Gabapentin 200mg po q8hr for anxiety associated with w/d Depakote 250mg po BID for mood stabilization/ mood augmentation 5.~ ~ Patient will be provided with protected environment. 6.~ ~ Patient will be treated with individual, group, and milieu therapies. 7.~ ~ Patient will receive supportive psych-education. 8.~ ~ Discharge planning will commence immediately. 9.~ ~ Length of patients stay will be between 5-7 days 10.~ Outpatient follow-up treatment will be strongly recommended. ]. ESTIMATED LENGTH OF STAY: 5-7 days. TIME SPENT COUNSELING AND COORDINATING INITIAL CARE: 60 minutes. Medications No Active Prescriptions or Reported Meds Allergies Coded Allergies: No Known Drug Allergy (Verified Allergy, Unknown, 08/22/15) DANIE WARNER MD Nov 19, 2016 06:57
[2016-11-19] MEDS: OXAZEPAM 10 MG CAP PO SCH (08:57)
[2016-11-19] MEDS: DIVALPROEX 250MG *ER* TAB PO SCH ×2 (08:57→21:01)
[2016-11-19] MEDS: NICOTINE 21MG/24HR 1 EA TRANSDERMAL TD SCH (08:59)
--- NOTE | 2016-11-19 12:03 | IPNPDOC ---
[facility] Progress Note Progress Note DATE OF SERVICE: 11/18/16 SUBJECTIVE: Patient initiates this interview again focused on discharge. Patient reports he has requested a friend to pick him up on 11/20/2016 as he expects to discharge on Wednesday. Informed he was not told he was definitely discharging on Wednesday. He was told to cancel his friends ride. Patient is medically compliant. Today he reports no ongoing opioid or benzo withdrawal symptoms. Patient continues to report he had no gun and therefore had no weapon to his head prior to admission. Today he did sign a release of information that this provider can talk to his grandmother who called the authorities to report his suicidal statement. Patient continues to report in intensity of depression at 0/10. She reports intensely level of anxiety at 0/ 10. He continues to introduce ideas that he believes will cause this provider to quicken his discharge. He asked this provider to review the police report as as patient reports he was not found with a loaded weapon. He also continues to point to needing to get back to his job, pay his car note, and other duties which she feels if not taking care of tomorrow will cause him to lose his job and his car and his girlfriend. Patient asked to re-prioritize his mental health. Patient is medically compliant. Patient reports no medication side effects. Patient reports sleeping 7-8 hours last night. Appetite improving. Patient denies SI/HI, she also denies AH/VH. No bizarre behavior, thoughts, affect, or delusional thoughts expressed during this interview. VITAL SIGNS: Please see below. CURRENT MEDICATIONS: See below. MENTAL STATUS EXAMINATION: Patient is a calm, cooperative, thin, causasian male in NAD]. Speech: Is RRR and spontaneous]. Thought processes: [Linear & Goal directed.] Thought content: [focused on discharge, manipulation to achieve goal of discharge]. Description of abnormal or psychotic thoughts: [no perceptual issues] Judgment: [poor] Insight: [poor] Oriented to: [Time, place and person.] Recent and Remote Memory: [good]. Attention Span and Concentration: [good]. Fund of knowledge: [good] Mood: [restrictive]. Affect: [constricted]. ASSESSMENT: 1. Opioid use d/o, severe 2. Opioid w/d 3. Benzo use d/o, severe 4. Benzo w/d 5. Cannabis use d/o, severe 6. Amphetamine& Cocaine use d/o,severe 7. Depressive d/o, unspecified 8. r/o Bipolar 2 d/o. PLAN: 1. Continue CIWA-B monitoring 2. Continue Serax 30mg po BID for noted signs of Benzo w/d. 3. Continue opioid withdrawal medication regimen: Zofran 4mg po BID PRN nausea Loperamide 2mg PRN loose stools Methocarbamol 750mg po q6hr PRN muscle spasm Clonidine 0.1mg po TID PRN sweats, fever, tremor 4. Continue: Gabapentin 200mg po q8hr for anxiety associated with w/d Depakote 250mg po BID for mood stabilization/ mood augmentation 5. Patient will be provided with protected environment. 6. Patient will be treated with individual, group, and milieu therapies. 7. Patient will receive supportive psych-education. TIME SPENT: [30] minutes Vital Signs Vital Signs Date Time Temp Pulse Resp B/P Pulse Ox O2 Delivery O2 Flow Rate FiO2 11/19/16 06:43 96.6 82 16 90/50 Current Medications Current Medications Acetaminophen (Tylenol) 650 mg Q6HP PRN PO HEADACHE or DISCOMFORT Last administered on 11/18/16 20:42; Start 11/16/16 at 20:15; Stop 12/16/16 at 20:14 Al Hydrox/Mg Hydrox/Simethicone (Mylanta) 30 ml Q4HP PRN PO HEARTBURN/ INDIGESTION; Start 11/16/16 at 20:15; Stop 12/16/16 at 20:14 Clonidine HCl (Catapres) 0.1 mg TIDP PRN PO WITHDRAWAL SYMPTOMS Last administered on 11/18/16 22:48; Start 11/17/16 at 19:30; Stop 12/17/16 at 19:29 Divalproex Sodium (Depakote Er) 250 mg BID PO Last administered on 11/19/16 08 :57; Start 11/17/16 at 21:00; Stop 12/17/16 at 20:59 Gabapentin (Neurontin) 200 mg Q8H PO Last administered on 11/19/16 06:17; Start 11/17/16 at 22:00; Stop 12/17/16 at 21:59 Home Med (Med Rec Complete!) ASDIRECTED XX ; Start 11/16/16 at 19:30; Stop at 19:45; Status DC Loperamide HCl (Imodium) 2 mg ASDIRECTED PRN PO DIARRHEA; Start 11/17/16 at 17: 45; Stop 12/17/16 at 17:44 Magnesium Hydroxide (Milk Of Magnesia) 30 ml DAILYPRN PRN PO CONSTIPATION; Start 11/16/16 at 20:15; Stop 12/16/16 at 20:14 Methocarbamol (Robaxin) 750 mg Q6HP PRN PO MUSCLE SPASMS Last administered on 19:19; Start 11/17/16 at 17:45; Stop 12/17/16 at 17:44 Nicotine (Nicoderm Cq 21mg) 1 patch DAILY TD ; Start 11/16/16 at 09:00; Stop at 20:22; Status DC Nicotine (Nicoderm Cq 21mg) 1 patch DAILY TD Last administered on 11/17/16 08: 18; Start 11/17/16 at 09:00; Stop 12/17/16 at 08:59 Olanzapine (ZyPREXA ZYDIS) 5 mg Q6HP PRN PO AGITATION Last administered on 11/17/16 08:18; Start 11/16/16 at 20:15; Stop 11/17/16 at 17:47; Status DC Ondansetron HCl (Zofran) 4 mg Q12HP PRN PO NAUSEA Last administered on 19:12; Start 11/17/16 at 17:45; Stop 12/17/16 at 17:44 Oxazepam (Serax) 30 mg BID PO Last administered on 11/19/16 08:57; Start 11/17 at 21:00; Stop 11/24/16 at 20:59 Oxazepam (Serax) 30 mg Q4HP PO ; Start 11/16/16 at 20:15; Stop 11/16/16 at 20:24 ; Status DC Oxazepam (Serax) 30 mg Q4HP PRN PO WITHDRAWAL SYMPTOMS; Start 11/16/16 at 20:30 ; Stop 11/17/16 at 19:24; Status DC Trazodone HCl (Desyrel) 50 mg QHSP PRN PO INSOMNIA Last administered on t 20:41; Start 11/16/16 at 20:15; Stop 12/16/16 at 20:14 Allergies Coded Allergies: No Known Drug Allergy (Verified Allergy, Unknown, 08/22/15) DANIE WARNER MD Nov 19, 2016 12:03
[2016-11-19] MEDS ORDERED: NICO21PAT TD (12:50)
[2016-11-19 14:21] LABS: AMPHETAMINES LEVEL URINE POSITIVE (NEGATIVE); BENZODIAZEPINES URINE POSITIVE (NEGATIVE); COCAINE METABOLITE URINE NEGATIVE (NEGATIVE); CONTROL LINE INT CTR LINE PRESENT; METHADONE URINE NEGATIVE (NEGATIVE); OPIATES URINE POSITIVE (NEGATIVE); TRICYCLIC ANTIDEPRESS URINE NEGATIVE (NEGATIVE)
--- NOTE | 2016-11-19 14:49 | IPNPDOC ---
[facility] Progress Note Progress Note DATE OF SERVICE: 11/19/16 SUBJECTIVE: Patient initiates this interview again focused on discharge. Patient is medically compliant. Patient reports no medication side effects. Patient reports sleeping 7-8 hours last night. Appetite improving. Patient denies SI/HI, she also denies AH/VH. No bizarre behavior, thoughts, affect, or delusional thoughts expressed during this interview. VITAL SIGNS: Please see below. CURRENT MEDICATIONS: See below. MENTAL STATUS EXAMINATION: Patient is a calm, cooperative, thin, causasian male in NAD]. Speech: Is RRR and spontaneous]. Thought processes: [Linear & Goal directed.] Thought content: [focused on discharge, manipulation to achieve goal of discharge]. Description of abnormal or psychotic thoughts: [no perceptual issues] Judgment: [poor] Insight: [poor] Oriented to: [Time, place and person.] Recent and Remote Memory: [good]. Attention Span and Concentration: [good]. Fund of knowledge: [good] Mood: [restrictive]. Affect: [constricted]. ASSESSMENT: 1. Opioid use d/o, severe 2. Opioid w/d 3. Benzo use d/o, severe 4. Benzo w/d 5. Cannabis use d/o, severe 6. Amphetamine& Cocaine use d/o,severe 7. Depressive d/o, unspecified 8. r/o Bipolar 2 d/o. PLAN: 1. Discontinue CIWA-B monitoring 2. Begin taper of Serax from 30mg po BID to 15mg po BID for noted signs of Benzo w/d. 3. Discontinue opioid withdrawal medication regimen: Zofran 4mg po BID PRN nausea Loperamide 2mg PRN loose stools Methocarbamol 750mg po q6hr PRN muscle spasm Clonidine 0.1mg po TID PRN sweats, fever, tremor 4. Continue: Gabapentin 200mg po q8hr for anxiety associated with w/d Depakote 250mg po BID for mood stabilization/ mood augmentation 5. Patient will be provided with protected environment. 6. Patient will be treated with individual, group, and milieu therapies. 7. Patient will receive supportive psych-education. TIME SPENT: [30] minutes Vital Signs Vital Signs Date Time Temp Pulse Resp B/P Pulse Ox O2 Delivery O2 Flow Rate FiO2 11/19/16 06:43 96.6 82 16 90/50 Laboratory Data 24H Labs Laboratory Tests 2 11/19/16 13:00: Urine Amphetamine Level POSITIVEH, Urine Benzodiazepines Screen POSITIVEH, Urine Cannabinoids POSITIVEH, Urine Cocaine Metabolite NEGATIVE, Urine Opiates Screen POSITIVEH, Urine Barbiturates, Qualitative NEGATIVE, Urine Methadone Screen NEGATIVE, Urine Tricyclic Antidepressants NEGATIVE Current Medications Current Medications Acetaminophen (Tylenol) 650 mg Q6HP PRN PO HEADACHE or DISCOMFORT Last administered on 11/18/16 20:42; Start 11/16/16 at 20:15; Stop 12/16/16 at 20:14 Al Hydrox/Mg Hydrox/Simethicone (Mylanta) 30 ml Q4HP PRN PO HEARTBURN/ INDIGESTION Last administered on 11/19/16 12:20; Start 11/16/16 at 20:15; Stop 12/16/16 at 20:14 Clonidine HCl (Catapres) 0.1 mg TIDP PRN PO WITHDRAWAL SYMPTOMS Last administered on 11/18/16 22:48; Start 11/17/16 at 19:30; Stop 11/19/16 at 14:26 ; Status DC Divalproex Sodium (Depakote Er) 250 mg BID PO Last administered on 11/19/16 08 :57; Start 11/17/16 at 21:00; Stop 12/17/16 at 20:59 Gabapentin (Neurontin) 200 mg Q8H PO Last administered on 11/19/16 14:06; Start 11/17/16 at 22:00; Stop 12/17/16 at 21:59 Home Med (Med Rec Complete!) ASDIRECTED XX ; Start 11/16/16 at 19:30; Stop at 19:45; Status DC Loperamide HCl (Imodium) 2 mg ASDIRECTED PRN PO DIARRHEA; Start 11/17/16 at 17: 45; Stop 11/19/16 at 14:26; Status DC Magnesium Hydroxide (Milk Of Magnesia) 30 ml DAILYPRN PRN PO CONSTIPATION; Start 11/16/16 at 20:15; Stop 12/16/16 at 20:14 Methocarbamol (Robaxin) 750 mg Q6HP PRN PO MUSCLE SPASMS Last administered on 19:19; Start 11/17/16 at 17:45; Stop 11/19/16 at 14:26; Status DC Nicotine (Nicoderm Cq 21mg) 1 patch DAILY TD ; Start 11/16/16 at 09:00; Stop at 20:22; Status DC Nicotine (Nicoderm Cq 21mg) 1 patch DAILY TD Last administered on 11/17/16 08: 18; Start 11/17/16 at 09:00; Stop 12/17/16 at 08:59 Olanzapine (ZyPREXA ZYDIS) 5 mg Q6HP PRN PO AGITATION Last administered on 11/17/16 08:18; Start 11/16/16 at 20:15; Stop 11/17/16 at 17:47; Status DC Ondansetron HCl (Zofran) 4 mg Q12HP PRN PO NAUSEA Last administered on 19:12; Start 11/17/16 at 17:45; Stop 11/19/16 at 14:26; Status DC Oxazepam (Serax) 15 mg BID PO ; Start 11/19/16 at 21:00; Stop 11/26/16 at 20:59 Oxazepam (Serax) 30 mg BID PO Last administered on 11/19/16 08:57; Start 11/17 at 21:00; Stop 11/19/16 at 14:26; Status DC Oxazepam (Serax) 30 mg Q4HP PO ; Start 11/16/16 at 20:15; Stop 11/16/16 at 20:24 ; Status DC Oxazepam (Serax) 30 mg Q4HP PRN PO WITHDRAWAL SYMPTOMS; Start 11/16/16 at 20:30 ; Stop 11/17/16 at 19:24; Status DC Trazodone HCl (Desyrel) 50 mg QHSP PRN PO INSOMNIA Last administered on 20:41; Start 11/16/16 at 20:15; Stop 12/16/16 at 20:14 Allergies Coded Allergies: No Known Drug Allergy (Verified Allergy, Unknown, 08/22/15) DANIE WARNER MD Nov 19, 2016 14:49
[2016-11-19 18:00] VITALS: BP 101/60
[2016-11-19] MEDS: traZODone 50 MG TAB PO PRN (21:05)
[2016-11-19] MEDS: OXAZEPAM 15 MG CAP PO SCH (21:05)
[2016-11-19] MEDS ORDERED: LORazepam 2 MG TAB PO ONE (21:15)
[2016-11-20] MEDS: GABAPENTIN 100 MG CAP PO SCH ×2 (06:43→14:03)
[2016-11-20 06:52] VITALS: BP 107/59
[2016-11-20 06:54] VITALS: BP 107/59
[2016-11-20] MEDS: DIVALPROEX 250MG *ER* TAB PO SCH (08:14)
[2016-11-20] MEDS: OXAZEPAM 15 MG CAP PO SCH (08:14)
[2016-11-20] MEDS: NICOTINE 21MG/24HR 1 EA TRANSDERMAL TD SCH (08:14)
[2016-11-20] MEDS ORDERED: DEPA250T2 PO ×2 (14:01→14:16)
[2016-11-20] MEDS ORDERED: GABA-279 PO ×2 (14:01→14:16)
== END 2016-11-20 14:00 | disposition home or self-care (01) | DRG 753 ==
LOC: M ED 15:54 → M PSY 20:00
PROVIDERS: ADMIT Psychiatry & Neurology Psychiatry; ATTEND Psychiatry & Neurology Psychiatry
DX: F31.81 Bipolar II disorder (principal); F17.200 Nicotine dependence, unspecified, uncomplicated; M54.5 Low back pain

== ENCOUNTER 2016-12-30 23:28 | Emergency (ER) | payer BC, OTHER ==
[~2016-12-30] VITALS: Ht 188 cm; Wt 70.8 kg
[~2016-12-30 23:28] MED LIST changes: +DEPA250T2 PO; +GABA-279 PO; +NICO21PAT TD; -NICOTINE 21MG/24HR 1 EA TRANSDERMAL TD SCH
[2016-12-31 00:02] VITALS: BP 126/73
[2016-12-31] MEDS ORDERED: ADDE10CA PO (00:05)
== END 2016-12-31 01:37 | disposition home or self-care (01) ==
LOC: M ED 12-31 00:41
DX: F32.0 Major depressive disorder, single episode, mild (principal); F17.210 Nicotine dependence, cigarettes, uncomplicated; Z79.899 Other long term (current) drug therapy

== ENCOUNTER → 2017-12-20 | Outpatient (CLI) | payer OTHER, BC ==
[2017-12-20 10:22] LABS: BASO % 0.5 % (0.0-1.0); EOS # 0.4 10^3/uL (0.0-0.50); EOS % 6.1 % (0.0-3.0); HEMATOCRIT 44.1 % (42.0-52.0); IMMATURE GRANULOCYTE % 0.2 % (0-3.0); LYMPH # 2.9 10^3/uL (1.5-6.5); LYMPH % 47.8 % (24.0-44.0); MEAN CORPUSCULAR HEMOGLOBIN 28.3 pg (27.0-33.0); MEAN CORPUSCULAR VOLUME 83.2 fl (80.0-96.0); MONO # 0.5 10^3/uL (0.0-0.8); MONO % 8.9 % (0.0-5.0); NEUTROPHILS # 2.2 10^3/uL (1.8-7.7); NEUTROPHILS % 36.5 % (36.0-66.0); PLATELET COUNT, AUTOMATED 234 10^3/uL (150-450); RED CELL DISTRIBUTION WIDTH 11.9 % (11.5-14.5); WHITE BLOOD COUNT 6.1 10^3/uL (4.0-10.0)
[2017-12-20 10:45] LABS: APPEARANCE, URINE HAZY (CLEAR); BACTERIA, URINE AUTO NEGATIVE (NEGATIVE); BILIRUBIN, URINE AUTO NEGATIVE (NEGATIVE); BLOOD, URINE BLOOD NEGATIVE (NEGATIVE); COLOR, URINE YELLOW (YELLOW); GLUCOSE, URINE (UA) AUTO NEGATIVE (NEGATIVE); KETONE, URINE AUTO NEGATIVE (NEGATIVE); LEUKOCYTE ESTERASE, URINE AUTO NEGATIVE (NEGATIVE); MUCUS, URINE SMALL (NEGATIVE); NITRITE, URINE AUTO NEGATIVE (NEGATIVE); PROTEIN, URINE AUTO NEGATIVE (NEGATIVE); RBC, URINE AUTO 4 /HPF (0-3); SPECIFIC GRAVITY URINE AUTO 1.027 (1.002-1.035); SQUAMOUS EPITHELIAL CELL UR AU 0 /HPF (0-6); WBC, URINE AUTO 1 /HPF (0-3)
[2017-12-20 11:01] LABS: ALBUMIN/GLOBULIN RATIO 1.25 (1.00-1.93); ALKALINE PHOSPHATASE 85 U/L (45-117); ALT/SGPT 66 U/L (12-78); ANION GAP 7 MEQ/L (8-16); AST/SGOT 48 U/L (7-37); BILIRUBIN,TOTAL 1.2 MG/DL (0.2-1.0); BLOOD UREA NITROGEN 18 MG/DL (7-18); CALCIUM LEVEL 8.6 MG/DL (8.5-10.1); CARBON DIOXIDE LEVEL 30 MEQ/L (21-32); CHLORIDE LEVEL 104 MEQ/L (98-107); CREATININE FOR GFR 0.98 MG/DL (0.70-1.30); GLOMERULAR FILTRATION RATE > 60.0 (>60); GLUCOSE, FASTING 131 MG/DL (70-100); POTASSIUM SERUM 4.1 MEQ/L (3.5-5.1); SODIUM LEVEL 141 MEQ/L (136-145); TOTAL PROTEIN 7.2 GM/DL (6.4-8.2)
[2017-12-20 11:10] LABS: HEPATITIS B SURFACE ANTIBODY POSITIVE (POSITIVE)
[2017-12-20 11:21] LABS: HEPATITIS B SURFACE ANTIGEN NEGATIVE (NEGATIVE)
[2017-12-20 11:49] LABS: HEPATITIS C VIRUS ABY INDEX 0.1 INDEX (<0.8)
[2017-12-21 08:07] LABS: HEPATITIS A IgG TOTAL Negative (Negative)
== END ==
LOC: M LAB 09:43
DX: Z51.81 Encounter for therapeutic drug level monitoring (principal); Z79.891 Long term (current) use of opiate analgesic; K59.00 Constipation, unspecified; Z79.899 Other long term (current) drug therapy
CPT/HCPCS: 80053

== ENCOUNTER → 2018-01-17 | Outpatient (CLI) | payer OTHER | LOC: M EKG 13:52 | DX: F11.20 Opioid dependence, uncomplicated (principal) | CPT/HCPCS: 93005 ==

== ENCOUNTER → 2018-01-18 | Outpatient (CLI) | payer OTHER ==
[2018-01-18 16:16] LABS: HEMATOCRIT 39.8 % (42.0-52.0); HEMOGLOBIN 13.5 g/dl (14.0-18.0); MEAN CORPUSCULAR HEMOGLOBIN 28.4 pg (27.0-33.0); MEAN CORPUSCULAR HGB CONC 33.9 g/dl (32.0-36.5); MEAN CORPUSCULAR VOLUME 83.8 fl (80.0-96.0); PLATELET COUNT, AUTOMATED 226 10^3/uL (150-450); RED BLOOD COUNT 4.75 10^6/uL (4.30-6.10); RED CELL DISTRIBUTION WIDTH 12.1 % (11.5-14.5); WHITE BLOOD COUNT 7.5 10^3/uL (4.0-10.0)
[2018-01-18 16:30] LABS: ANION GAP 6 MEQ/L (8-16); AST/SGOT 13 U/L (7-37); BLOOD UREA NITROGEN 16 MG/DL (7-18); CALCIUM LEVEL 8.7 MG/DL (8.5-10.1); CARBON DIOXIDE LEVEL 29 MEQ/L (21-32); CHLORIDE LEVEL 111 MEQ/L (98-107); CREATININE FOR GFR 1.02 MG/DL (0.70-1.30); GLOMERULAR FILTRATION RATE > 60.0 (>60); GLUCOSE, FASTING 84 MG/DL (70-100); POTASSIUM SERUM 4.5 MEQ/L (3.5-5.1); SODIUM LEVEL 146 MEQ/L (136-145)
[2018-01-18 16:31] LABS: ALBUMIN 3.9 GM/DL (3.2-5.2); ALKALINE PHOSPHATASE 79 U/L (45-117); ALT/SGPT 29 U/L (12-78); BILIRUBIN,TOTAL 0.8 MG/DL (0.2-1.0); TOTAL PROTEIN 6.9 GM/DL (6.4-8.2)
[2018-01-18 17:49] LABS: CHLAMYDIA DNA AMPLIFICATION NEGATIVE (NEGATIVE); GC DNA AMPLIFICATION NEGATIVE (NEGATIVE)
[2018-01-19 11:00] LABS: HEPATITIS B SURFACE ANTIGEN NEGATIVE (NEGATIVE)
[2018-01-19 11:25] LABS: HIV 1&2 SCREEN CENTAUR NEGATIVE (NEGATIVE)
== END ==
LOC: M LAB 15:33
DX: F11.20 Opioid dependence, uncomplicated (principal)
CPT/HCPCS: 80053

== ENCOUNTER → 2019-02-03 | Outpatient (CLI) | payer OTHER ==
[~2019-02-03] MED LIST changes: +ADDE10CA3 PO; +GABA-1171 PO; -GABA-279 PO
[2019-02-03 09:09] LABS: ALBUMIN 4.1 GM/DL (3.2-5.2); BILIRUBIN,DIRECT 0.1 MG/DL (0.0-0.2); BILIRUBIN,TOTAL 0.7 MG/DL (0.2-1.0); TOTAL PROTEIN 7.5 GM/DL (6.4-8.2)
--- NOTE | 2019-02-03 16:53 | ECGEPIP ---
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
== END ==
LOC: M LAB 07:57
PROVIDERS: ATTEND Family Medicine
DX: F11.20 Opioid dependence, uncomplicated (principal)

== ENCOUNTER → 2019-03-07 | Outpatient (CLI) | payer OTHER ==
[2019-03-07 13:36] LABS: HEMATOCRIT 45.8 % (42.0-52.0); HEMOGLOBIN 15.1 g/dl (13.5-17.5); MEAN CORPUSCULAR HEMOGLOBIN 29.2 pg (27.0-33.0); MEAN CORPUSCULAR VOLUME 88.6 fl (80.0-96.0); PLATELET COUNT, AUTOMATED 230 10^3/uL (150-450); RED BLOOD COUNT 5.17 10^6/uL (4.30-6.10); WHITE BLOOD COUNT 9.7 10^3/uL (4.0-10.0)
[2019-03-07 14:15] LABS: ALBUMIN 3.9 GM/DL (3.2-5.2); ALT/SGPT 113 U/L (12-78); BILIRUBIN,TOTAL 0.8 MG/DL (0.2-1.0); BLOOD UREA NITROGEN 11 MG/DL (7-18); CALCIUM LEVEL 8.7 MG/DL (8.5-10.1); CARBON DIOXIDE LEVEL 30 MEQ/L (21-32); CHLORIDE LEVEL 105 MEQ/L (98-107); CREATININE FOR GFR 1.02 MG/DL (0.70-1.30); GLOMERULAR FILTRATION RATE > 60.0 (>60); GLUCOSE, FASTING 98 MG/DL (70-100); POTASSIUM SERUM 4.6 MEQ/L (3.5-5.1); SODIUM LEVEL 139 MEQ/L (136-145); TOTAL PROTEIN 7.8 GM/DL (6.4-8.2)
[2019-03-07 15:38] LABS: CHLAMYDIA DNA AMPLIFICATION NEGATIVE (NEGATIVE); GC DNA AMPLIFICATION NEGATIVE (NEGATIVE)
[2019-03-08 10:32] LABS: HEPATITIS B SURFACE ANTIGEN NEGATIVE (NEGATIVE)
[2019-03-08 11:00] LABS: HIV 1&2 SCREEN CENTAUR NEGATIVE (NEGATIVE)
== END ==
LOC: M LAB 12:37
PROVIDERS: ATTEND Family Medicine
DX: F11.20 Opioid dependence, uncomplicated (principal)

== ENCOUNTER → 2020-03-04 | Outpatient (CLI) | payer OTHER ==
--- NOTE | 2020-03-05 19:07 | ECGEPIP ---
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
== END ==
LOC: M EKG 09:46
PROVIDERS: ATTEND Family Medicine
DX: F11.20 Opioid dependence, uncomplicated (principal)

== ENCOUNTER → 2020-09-27 | Outpatient (CLI) | payer OTHER ==
[2020-09-27 10:23] LABS: HEMATOCRIT 43.6 % (42.0-52.0); HEMOGLOBIN 14.6 g/dl (13.5-17.5); MEAN CORPUSCULAR HEMOGLOBIN 28.6 pg (27.0-33.0); MEAN CORPUSCULAR HGB CONC 33.5 g/dl (32.0-36.5); MEAN CORPUSCULAR VOLUME 85.5 fl (80.0-96.0); PLATELET COUNT, AUTOMATED 277 10^3/uL (150-450); WHITE BLOOD COUNT 7.3 10^3/uL (4.0-10.0)
[2020-09-27 10:53] LABS: ALBUMIN 4.2 GM/DL (3.2-5.2); ALT/SGPT 39 U/L (12-78); BILIRUBIN,TOTAL 0.4 MG/DL (0.2-1.0); BLOOD UREA NITROGEN 18 MG/DL (7-18); CALCIUM LEVEL 8.9 MG/DL (8.5-10.1); CARBON DIOXIDE LEVEL 28 MEQ/L (21-32); CHLORIDE LEVEL 106 MEQ/L (98-107); CREATININE FOR GFR 1.03 MG/DL (0.70-1.30); GLOMERULAR FILTRATION RATE > 60.0 (>60); GLUCOSE, FASTING 100 MG/DL (70-100); POTASSIUM SERUM 4.2 MEQ/L (3.5-5.1); SODIUM LEVEL 138 MEQ/L (136-145); TOTAL PROTEIN 7.6 GM/DL (6.4-8.2)
[2020-09-27 11:15] LABS: HEPATITIS B SURFACE ANTIGEN NEGATIVE (NEGATIVE)
[2020-09-27 11:41] LABS: HIV 1&2 SCREEN CENTAUR NEGATIVE (NEGATIVE)
== END ==
LOC: M LAB 09:11
PROVIDERS: ATTEND Family Medicine
DX: F11.20 Opioid dependence, uncomplicated (principal)

== ENCOUNTER → 2022-02-04 | Outpatient (REF) | payer OTHER ==
[2022-02-04 17:32] LABS: APPEARANCE, URINE CLEAR (CLEAR); BACTERIA, URINE AUTO NEGATIVE (NEGATIVE); BILIRUBIN, URINE AUTO NEGATIVE (NEGATIVE); BLOOD, URINE BLOOD NEGATIVE (NEGATIVE); CALCIUM OXALATE CRYSTALS SMALL; COLOR, URINE YELLOW (YELLOW); GLUCOSE, URINE (UA) AUTO NEGATIVE (NEGATIVE); KETONE, URINE AUTO NEGATIVE (NEGATIVE); LEUKOCYTE ESTERASE, URINE AUTO TRACE (NEGATIVE); MUCUS, URINE SMALL (NEGATIVE); NITRITE, URINE AUTO NEGATIVE (NEGATIVE); PROTEIN, URINE AUTO NEGATIVE (NEGATIVE); RBC, URINE AUTO 1 /HPF (0-3); SPECIFIC GRAVITY URINE AUTO 1.025 (1.002-1.035); SQUAMOUS EPITHELIAL CELL UR AU 0 /HPF (0-6); WBC, URINE AUTO 1 /HPF (0-3)
== END ==
LOC: M SMT 16:50
PROVIDERS: ATTEND Urology
DX: Z87.438 Personal history of other diseases of male genital organs (principal)

== ENCOUNTER 2022-11-08 12:43 | Inpatient (IN) | payer MEDICAID, OTHER ==
[2022-11-08 13:29] LABS: HEMATOCRIT 47.1 % (42.0-52.0); HEMOGLOBIN 16.2 g/dl (13.5-17.5); MEAN CORPUSCULAR HEMOGLOBIN 29.5 pg (27.0-33.0); MEAN CORPUSCULAR HGB CONC 34.4 g/dl (32.0-36.5); MEAN CORPUSCULAR VOLUME 85.6 fl (80.0-96.0); PLATELET COUNT, AUTOMATED 288 10^3/uL (150-450); WHITE BLOOD COUNT 7.8 10^3/uL (4.0-10.0)
[2022-11-08 13:58] LABS: AMPHETAMINES LEVEL URINE NEGATIVE (NEGATIVE)
[2022-11-08 13:59] LABS: BARBITURATES URINE NEGATIVE (NEGATIVE); BENZODIAZEPINES URINE NEGATIVE (NEGATIVE); COCAINE METABOLITE URINE NEGATIVE (NEGATIVE); OPIATES URINE NEGATIVE (NEGATIVE); PHENCYCLIDINE URINE NEGATIVE (NEGATIVE)
[2022-11-08 14:00] LABS: CANNABINOIDS URINE POSITIVE (NEGATIVE); ETHYL ALCOHOL (ETHANOL) 0.003 % (0.000-0.010); METHADONE URINE POSITIVE (NEGATIVE)
[2022-11-08 14:02] LABS: ACETAMINOPHEN LEVEL < 2.0 UG/ML (10.0-20.0); ALBUMIN 4.4 G/DL (3.2-5.2); ALKALINE PHOSPHATASE 77 U/L (46-116); ALT/SGPT 91 U/L (7.0-40); AST/SGOT 36 U/L (<34); BILIRUBIN,DIRECT 0.3 MG/DL (<0.4); BILIRUBIN,TOTAL 1.5 MG/DL (0.3-1.2); BLOOD UREA NITROGEN 17 MG/DL (9-23); CALCIUM LEVEL 9.4 MG/DL (8.5-10.1); CARBON DIOXIDE LEVEL 24 MMOL/L (20-31); CHLORIDE LEVEL 103 MMOL/L (98-107); CREATININE FOR GFR 0.87 MG/DL (0.70-1.30); GLOMERULAR FILTRATION RATE > 60.0 (>60); GLUCOSE, FASTING 111 MG/DL (60-100); POTASSIUM SERUM 4.1 MMOL/L (3.5-5.1); SALICYLATE LEVEL < 3.0 MG/DL (<30); SODIUM LEVEL 137 MMOL/L (136-145); TOTAL PROTEIN 8.5 G/DL (5.7-8.2)
[2022-11-08 14:05] LABS: THYROID STIMULATING HORMONE 2.105 uIU/ML (0.55-4.78)
[2022-11-08 14:23] LABS: RSV AMPLIFICATION NEGATIVE (NEGATIVE)
[2022-11-08] MEDS ORDERED: METH10CO3 PO (18:54)
[2022-11-08] MEDS ORDERED: LEVA45AE INH (18:54)
[2022-11-08] MEDS ORDERED: DOXE100CA PO (18:54)
[2022-11-08] MEDS ORDERED: HYDR50TA70 PO (18:54)
[2022-11-08] MEDS ORDERED: PANT20TA6 PO (18:54)
[2022-11-08] MEDS ORDERED: METO1TAB87 PO (18:54)
[2022-11-08] MEDS ORDERED: DIPH25TA4 PO (18:54)
[2022-11-08] MEDS ORDERED: CLON-412 PO (18:54)
[2022-11-08] MEDS ORDERED: MIRT-10 PO (18:54)
[2022-11-08] MEDS ORDERED: OLAN15TA13 PO (18:54)
[2022-11-08] MEDS ORDERED: BENZ0.5T23 PO (18:54)
[2022-11-08] MEDS ORDERED: HOME MED LIST COMPLETE! XX SCH (18:55)
[2022-11-08] MEDS ORDERED: BENZTROPINE 0.5 MG TAB PO ONE (20:00)
[2022-11-08] MEDS ORDERED: METOPROLOL TART 25 MG TABLET PO ONE (20:00)
[2022-11-08] MEDS ORDERED: diphenhydrAMINE 50MG CAP PO ONE (20:00)
[2022-11-08] MEDS ORDERED: DOXEPIN 25 MG CAP PO ONE (20:00)
[2022-11-08] MEDS ORDERED: cloNIDine 0.1MG TABLET PO ONE (20:00)
[2022-11-08] MEDS ORDERED: MIRTAZAPINE 15 MG TAB PO ONE (20:00)
[2022-11-08] MEDS ORDERED: OLANZapine 5 MG TAB PO ONE (20:00)
[2022-11-09] MEDS ORDERED: METOPROLOL TART 25 MG TABLET PO SCH (09:00)
[2022-11-09] MEDS ORDERED: METHADONE 10MG TAB PO SCH (09:00)
[2022-11-09] MEDS ORDERED: PANTOPRAZOLE 20 MG TAB PO SCH (09:00)
[2022-11-09] MEDS ORDERED: diphenhydrAMINE 50MG CAP PO PRN (09:15)
[2022-11-09] MEDS ORDERED: LEVALBUTEROL HFA 45MCG/ACT 15GM INHALER INH PRN ×2 (09:15→18:25)
[2022-11-09] MEDS ORDERED: hydrOXYzine 50 MG TAB PO PRN ×2 (09:15→18:25)
[2022-11-09 09:28] LABS: HEPATITIS B CORE ANTIBODY IGM NEGATIVE (NEGATIVE); HEPATITIS B SURFACE ANTIGEN NEGATIVE (NEGATIVE); HEPATITIS C VIRUS ABY INDEX 0.1 INDEX (<0.8)
[2022-11-09] MEDS: cloNIDine 0.1MG TABLET PO SCH ×3 (10:31→20:33)
[2022-11-09] MEDS ORDERED: MAALOX 30 ML SUSP *UDC PO PRN (18:20)
[2022-11-09] MEDS ORDERED: MOM 30ML SUSPENSION UDC PO PRN (18:20)
[2022-11-09] MEDS: OLANZapine 5 MG TAB PO SCH (20:33)
[2022-11-09] MEDS: BENZTROPINE 0.5 MG TAB PO SCH (20:33)
[2022-11-09] MEDS: MIRTAZAPINE 15 MG TAB PO SCH (20:33)
[2022-11-09] MEDS: DOXEPIN 25 MG CAP PO SCH (20:33)
[2022-11-09] MEDS: NICOTINE 21MG/24HR 1 EA TRANSDERMAL TD SCH (20:33)
[2022-11-09] MEDS: diphenhydrAMINE 50MG CAP PO SCH (20:33)
[2022-11-09] MEDS: METOPROLOL TART 25 MG TABLET PO SCH (20:34)
[2022-11-09 20:41] VITALS: BP 159/87
[2022-11-09] MEDS ORDERED: BENZTROPINE 0.5 MG TAB PO SCH (21:00)
[2022-11-09] MEDS ORDERED: OLANZapine 5 MG TAB PO SCH (21:00)
[2022-11-09] MEDS ORDERED: DOXEPIN 25 MG CAP PO SCH ×2 (21:00)
[2022-11-09] MEDS ORDERED: MIRTAZAPINE 15 MG TAB PO SCH (21:00)
[2022-11-10 06:19] VITALS: BP 110/77
[2022-11-10] MEDS: cloNIDine 0.1MG TABLET PO SCH ×3 (07:53→20:25)
[2022-11-10] MEDS: METHADONE 10MG TAB PO SCH (07:53)
[2022-11-10] MEDS: NICOTINE 21MG/24HR 1 EA TRANSDERMAL TD SCH ×2 (07:54→20:26)
[2022-11-10] MEDS: PANTOPRAZOLE 20 MG TAB PO SCH (07:54)
[2022-11-10] MEDS: METOPROLOL TART 25 MG TABLET PO SCH ×2 (07:54→22:07)
[2022-11-10] MEDS: BENZTROPINE 0.5 MG TAB PO SCH ×2 (07:54→20:24)
[2022-11-10] MEDS ORDERED: METHADONE 10MG TAB PO ONE (09:00)
[2022-11-10] MEDS: OLANZapine ORAL DISINTEGRATING TAB 5MG PO PRN (10:04)
[2022-11-10] MEDS: ALBUTEROL 90 MCG/ACT 8GM HFA INHALER INH PRN ×2 (10:08→17:07)
[2022-11-10 16:50] VITALS: BP 144/87
[2022-11-10] MEDS: OXYMETAZOLINE 0.05% NASAL SPRAY (AFRIN) PRN (17:07)
[2022-11-10] MEDS ORDERED: ISOVUE-370 76% 100ML VIAL As Ordered ONE ×2 (17:45→19:39)
[2022-11-10] MEDS ORDERED: ONDANSETRON 4MG ORAL DISINTEGRATING TAB PO ONE (18:00)
[2022-11-10 18:41] LABS: ALBUMIN 4.5 G/DL (3.2-5.2); ALKALINE PHOSPHATASE 75 U/L (46-116); ALT/SGPT 105 U/L (7.0-40); AST/SGOT 43 U/L (<34); BLOOD UREA NITROGEN 20 MG/DL (9-23); CALCIUM LEVEL 9.7 MG/DL (8.5-10.1); CARBON DIOXIDE LEVEL 26 MMOL/L (20-31); CHLORIDE LEVEL 103 MMOL/L (98-107); CREATININE FOR GFR 0.99 MG/DL (0.70-1.30); GLOMERULAR FILTRATION RATE > 60.0 (>60); GLUCOSE, FASTING 86 MG/DL (60-100); POTASSIUM SERUM 4.3 MMOL/L (3.5-5.1); SODIUM LEVEL 140 MMOL/L (136-145); TOTAL PROTEIN 8.2 G/DL (5.7-8.2)
[2022-11-10 18:43] LABS: THYROXINE (T4) 12.1 UG/DL (4.5-10.9)
[2022-11-10 18:44] LABS: T UPTAKE 32.8 % (22.5-37.0); THYROID STIMULATING HORMONE 2.892 uIU/ML (0.55-4.78)
[2022-11-10 20:08] VITALS: BP 150/98
[2022-11-10] MEDS: ACETAMINOPHEN TAB 650MG DOSE (2X325MG) PO PRN (20:25)
[2022-11-10] MEDS: MIRTAZAPINE 15 MG TAB PO SCH (20:26)
[2022-11-10] MEDS: DOXEPIN 25 MG CAP PO SCH (20:26)
[2022-11-10] MEDS: OLANZapine 5 MG TAB PO SCH (20:26)
[2022-11-10] MEDS: diphenhydrAMINE 50MG CAP PO SCH (22:04)
[2022-11-10 22:19] VITALS: BP 135/87
[2022-11-11 06:33] VITALS: BP 103/59
[2022-11-11] MEDS: ALBUTEROL 90 MCG/ACT 8GM HFA INHALER INH PRN ×2 (08:52→16:54)
[2022-11-11] MEDS: OXYMETAZOLINE 0.05% NASAL SPRAY (AFRIN) PRN ×2 (08:52→21:21)
[2022-11-11] MEDS: PANTOPRAZOLE 20 MG TAB PO SCH (08:56)
[2022-11-11] MEDS: METOPROLOL TART 25 MG TABLET PO SCH ×2 (08:57→20:02)
[2022-11-11] MEDS: cloNIDine 0.1MG TABLET PO SCH ×3 (08:57→20:02)
[2022-11-11] MEDS: METHADONE 10MG TAB PO SCH (08:58)
[2022-11-11] MEDS: BENZTROPINE 0.5 MG TAB PO SCH ×2 (08:58→20:03)
[2022-11-11] MEDS ORDERED: INFLUENZA QUADRIVALENT PF VACCINE 0.5ML SYRINGE IM.IMMUN ONE (09:00)
[2022-11-11] MEDS: NICOTINE 21MG/24HR 1 EA TRANSDERMAL TD SCH (09:01)
[2022-11-11] MEDS: hydrOXYzine 50 MG TAB PO SCH ×3 (09:45→20:03)
[2022-11-11 15:55] VITALS: BP 122/71
[2022-11-11] MEDS: ACETAMINOPHEN TAB 650MG DOSE (2X325MG) PO PRN (16:21)
[2022-11-11] MEDS: OLANZapine ORAL DISINTEGRATING TAB 5MG PO PRN (18:48)
[2022-11-11] MEDS: DOXEPIN 25 MG CAP PO SCH (20:02)
[2022-11-11] MEDS: OLANZapine 5 MG TAB PO SCH (20:03)
[2022-11-11] MEDS: MIRTAZAPINE 15 MG TAB PO SCH (20:03)
[2022-11-11] MEDS: diphenhydrAMINE 50MG CAP PO SCH (20:03)
[2022-11-12 06:17] VITALS: BP 101/57
[2022-11-12 06:51] LABS: CHOLESTEROL RISK RATIO 10.34 (<5); HDL CHOLESTEROL 25.9 MG/DL (>40); LDL CHOLESTEROL 190.1 MG/DL (<100)
[2022-11-12] MEDS: OXYMETAZOLINE 0.05% NASAL SPRAY (AFRIN) PRN (08:48)
[2022-11-12] MEDS: METHADONE 10MG TAB PO SCH (08:49)
[2022-11-12] MEDS: METOPROLOL TART 25 MG TABLET PO SCH ×2 (08:49→20:09)
[2022-11-12] MEDS: BENZTROPINE 0.5 MG TAB PO SCH ×2 (08:49→20:09)
[2022-11-12] MEDS: PANTOPRAZOLE 20 MG TAB PO SCH (08:49)
[2022-11-12] MEDS: NICOTINE 21MG/24HR 1 EA TRANSDERMAL TD SCH (08:50)
[2022-11-12] MEDS: cloNIDine 0.1MG TABLET PO SCH ×3 (08:50→20:08)
[2022-11-12] MEDS: hydrOXYzine 50 MG TAB PO SCH ×3 (08:50→20:09)
[2022-11-12] MEDS ORDERED: IBUPROFEN 800 MG TAB PO ONE (09:45)
[2022-11-12] MEDS ORDERED: SODIUM CHLORIDE NASAL 0.65% SPRAY BTL (OCEAN) PRN (09:50)
[2022-11-12] MEDS: OLANZapine 5 MG TAB PO SCH ×2 (11:08→20:09)
[2022-11-12 12:08] LABS: ANTINUCLEAR ANTIBODIES DIRECT Negative (Negative)
[2022-11-12] MEDS: FLUTICASONE PROP 0.05% NASAL SPRAY 16 GM (FLONASE) NARES SCH ×2 (12:42→20:08)
[2022-11-12 18:10] VITALS: BP 134/89
[2022-11-12] MEDS: ALBUTEROL 90 MCG/ACT 8GM HFA INHALER INH PRN (18:26)
[2022-11-12] MEDS: MIRTAZAPINE 15 MG TAB PO SCH (20:09)
[2022-11-12] MEDS: DOXEPIN 25 MG CAP PO SCH (20:09)
[2022-11-12] MEDS: diphenhydrAMINE 50MG CAP PO SCH (20:09)
[2022-11-13 05:52] VITALS: BP 107/63
[2022-11-13] MEDS: FLUTICASONE PROP 0.05% NASAL SPRAY 16 GM (FLONASE) NARES SCH ×2 (08:28→20:01)
[2022-11-13] MEDS: hydrOXYzine 50 MG TAB PO SCH ×3 (08:32→19:59)
[2022-11-13] MEDS: OLANZapine 5 MG TAB PO SCH ×2 (08:32→19:59)
[2022-11-13] MEDS: cloNIDine 0.1MG TABLET PO SCH ×3 (08:34→19:59)
[2022-11-13] MEDS: PANTOPRAZOLE 20 MG TAB PO SCH (08:35)
[2022-11-13] MEDS: METOPROLOL TART 25 MG TABLET PO SCH ×2 (08:35→20:00)
[2022-11-13] MEDS: BENZTROPINE 0.5 MG TAB PO SCH ×2 (08:35→19:59)
[2022-11-13] MEDS: NICOTINE 21MG/24HR 1 EA TRANSDERMAL TD SCH (08:36)
[2022-11-13] MEDS: METHADONE 10MG TAB PO SCH (08:36)
[2022-11-13 15:10] VITALS: BP 147/80
[2022-11-13] MEDS: ALBUTEROL 90 MCG/ACT 8GM HFA INHALER INH PRN ×2 (15:12→22:27)
[2022-11-13] MEDS: OLANZapine ORAL DISINTEGRATING TAB 5MG PO PRN (16:54)
[2022-11-13] MEDS: DOXEPIN 25 MG CAP PO SCH (19:58)
[2022-11-13] MEDS: MIRTAZAPINE 15 MG TAB PO SCH (19:59)
[2022-11-13] MEDS: diphenhydrAMINE 50MG CAP PO SCH (19:59)
[2022-11-14 06:38] VITALS: BP 135/87
[2022-11-14] MEDS: cloNIDine 0.1MG TABLET PO SCH ×3 (08:35→19:58)
[2022-11-14] MEDS: BENZTROPINE 0.5 MG TAB PO SCH ×2 (08:35→19:59)
[2022-11-14] MEDS: hydrOXYzine 50 MG TAB PO SCH ×3 (08:35→19:59)
[2022-11-14] MEDS: METHADONE 10MG TAB PO SCH (08:36)
[2022-11-14] MEDS: METOPROLOL TART 25 MG TABLET PO SCH ×2 (08:36→19:59)
[2022-11-14] MEDS: FLUTICASONE PROP 0.05% NASAL SPRAY 16 GM (FLONASE) NARES SCH ×2 (08:36→20:02)
[2022-11-14] MEDS: OLANZapine 5 MG TAB PO SCH ×2 (08:36→19:58)
[2022-11-14] MEDS: PANTOPRAZOLE 20 MG TAB PO SCH (08:36)
[2022-11-14] MEDS: NICOTINE 21MG/24HR 1 EA TRANSDERMAL TD SCH (08:37)
[2022-11-14] MEDS: ACETAMINOPHEN TAB 650MG DOSE (2X325MG) PO PRN (08:38)
[2022-11-14 15:56] VITALS: BP 132/72
[2022-11-14] MEDS: ALBUTEROL 90 MCG/ACT 8GM HFA INHALER INH PRN ×2 (17:03→19:40)
[2022-11-14] MEDS: OLANZapine ORAL DISINTEGRATING TAB 5MG PO PRN (19:40)
[2022-11-14] MEDS: diphenhydrAMINE 50MG CAP PO SCH (19:58)
[2022-11-14] MEDS: DOXEPIN 25 MG CAP PO SCH (19:58)
[2022-11-14] MEDS: traZODone 50 MG TAB PO PRN (19:59)
[2022-11-14] MEDS: MIRTAZAPINE 15 MG TAB PO SCH (19:59)
[2022-11-15 06:32] VITALS: BP 116/68
[2022-11-15] MEDS: hydrOXYzine 50 MG TAB PO SCH ×3 (07:54→20:03)
[2022-11-15] MEDS: NICOTINE 21MG/24HR 1 EA TRANSDERMAL TD SCH (07:54)
[2022-11-15] MEDS: FLUTICASONE PROP 0.05% NASAL SPRAY 16 GM (FLONASE) NARES SCH ×2 (07:54→20:02)
[2022-11-15] MEDS: METOPROLOL TART 25 MG TABLET PO SCH ×2 (07:55→20:03)
[2022-11-15] MEDS: cloNIDine 0.1MG TABLET PO SCH ×3 (07:55→20:02)
[2022-11-15] MEDS: OLANZapine 5 MG TAB PO SCH ×2 (07:55→20:02)
[2022-11-15] MEDS: BENZTROPINE 0.5 MG TAB PO SCH ×2 (07:56→20:02)
[2022-11-15] MEDS: METHADONE 10MG TAB PO SCH (07:56)
[2022-11-15] MEDS: PANTOPRAZOLE 20 MG TAB PO SCH (07:56)
[2022-11-15 16:15] VITALS: BP 138/79
[2022-11-15] MEDS: ALBUTEROL 90 MCG/ACT 8GM HFA INHALER INH PRN (17:30)
[2022-11-15] MEDS: MIRTAZAPINE 15 MG TAB PO SCH (20:02)
[2022-11-15] MEDS: DOXEPIN 25 MG CAP PO SCH (20:02)
[2022-11-15] MEDS: diphenhydrAMINE 50MG CAP PO SCH (20:03)
[2022-11-15] MEDS: traZODone 50 MG TAB PO PRN (21:36)
[2022-11-15] MEDS: OLANZapine ORAL DISINTEGRATING TAB 5MG PO PRN (21:36)
[2022-11-16 05:50] VITALS: BP 110/71
[2022-11-16] MEDS: PANTOPRAZOLE 20 MG TAB PO SCH (08:22)
[2022-11-16] MEDS: FLUTICASONE PROP 0.05% NASAL SPRAY 16 GM (FLONASE) NARES SCH ×2 (08:22→19:59)
[2022-11-16] MEDS: cloNIDine 0.1MG TABLET PO SCH ×3 (08:23→20:00)
[2022-11-16] MEDS: METOPROLOL TART 25 MG TABLET PO SCH ×2 (08:24→20:00)
[2022-11-16] MEDS: OLANZapine 5 MG TAB PO SCH ×2 (08:24→20:00)
[2022-11-16] MEDS: hydrOXYzine 50 MG TAB PO SCH ×2 (08:24→20:00)
[2022-11-16] MEDS: BENZTROPINE 0.5 MG TAB PO SCH ×2 (08:24→20:01)
[2022-11-16] MEDS: METHADONE 10MG TAB PO SCH (08:25)
[2022-11-16] MEDS: NICOTINE 21MG/24HR 1 EA TRANSDERMAL TD SCH (08:25)
[2022-11-16] MEDS: ALBUTEROL 90 MCG/ACT 8GM HFA INHALER INH PRN ×2 (16:40→20:00)
[2022-11-16] MEDS ORDERED: hydrOXYzine 50 MG TAB PO SCH (17:00)
[2022-11-16 19:19] VITALS: BP 126/82
[2022-11-16] MEDS: DOXEPIN 25 MG CAP PO SCH (20:00)
[2022-11-16] MEDS: MIRTAZAPINE 15 MG TAB PO SCH (20:00)
[2022-11-16] MEDS: diphenhydrAMINE 50MG CAP PO SCH (20:01)
[2022-11-16] MEDS: traZODone 50 MG TAB PO PRN (20:01)
[2022-11-17 06:15] VITALS: BP 123/67
[2022-11-17] MEDS ORDERED: NICO21PAT TD (07:50)
[2022-11-17] MEDS ORDERED: OLAN1TAB20 PO (07:50)
[2022-11-17] MEDS ORDERED: CLON-412 PO (07:50)
[2022-11-17] MEDS ORDERED: MIRT-10 PO (07:50)
[2022-11-17] MEDS ORDERED: FLUTISP NARES (07:50)
[2022-11-17] MEDS ORDERED: BENZ0.5T23 PO (07:50)
[2022-11-17] MEDS ORDERED: HYDR50TA70 PO (07:50)
[2022-11-17] MEDS ORDERED: PANT20TA6 PO (07:50)
[2022-11-17] MEDS ORDERED: DOXE100CA PO (07:50)
[2022-11-17] MEDS: OLANZapine 5 MG TAB PO SCH (08:29)
[2022-11-17] MEDS: METOPROLOL TART 25 MG TABLET PO SCH (08:29)
[2022-11-17] MEDS: PANTOPRAZOLE 20 MG TAB PO SCH (08:29)
[2022-11-17] MEDS: FLUTICASONE PROP 0.05% NASAL SPRAY 16 GM (FLONASE) NARES SCH (08:29)
[2022-11-17 08:30] VITALS: BP 125/94
[2022-11-17] MEDS: NICOTINE 21MG/24HR 1 EA TRANSDERMAL TD SCH (08:30)
[2022-11-17] MEDS: hydrOXYzine 50 MG TAB PO SCH (08:30)
[2022-11-17] MEDS: METHADONE 10MG TAB PO SCH (08:30)
[2022-11-17] MEDS: BENZTROPINE 0.5 MG TAB PO SCH (08:30)
[2022-11-17] MEDS: cloNIDine 0.1MG TABLET PO SCH (08:30)
[2022-11-17] MEDS: ALBUTEROL 90 MCG/ACT 8GM HFA INHALER INH PRN (09:03)
[2022-11-17] MEDS: OLANZapine ORAL DISINTEGRATING TAB 5MG PO PRN (10:12)
== END 2022-11-17 10:32 | disposition home or self-care (01) | DRG 756 ==
LOC: M ED 12:43 → M ED INP 11-09 18:16 → M PSY 11-09 19:59
PROVIDERS: ADMIT Psychiatry & Neurology Psychiatry; ATTEND Psychiatry & Neurology Psychiatry
DX: F41.9 Anxiety disorder, unspecified (principal); I10 Essential (primary) hypertension; R45.851 Suicidal ideations; F17.200 Nicotine dependence, unspecified, uncomplicated; F39 Unspecified mood [affective] disorder; Z79.899 Other long term (current) drug therapy; F12.10 Cannabis abuse, uncomplicated; F17.290 Nicotine dependence, other tobacco product, uncomplicated; J45.909 Unspecified asthma, uncomplicated; F32.A Depression, unspecified

== ENCOUNTER 2023-01-04 19:27 | Emergency (ER) | payer OTHER ==
[~2023-01-04] VITALS: Ht 188 cm; Wt 105.3 kg
[~2023-01-04 19:27] MED LIST changes: +BENZ0.5T23 PO; +CLON-412 PO; +DIPH25TA4 PO; +DOXE100CA PO; +FLUTISP NARES; +HYDR50TA70 PO; +LEVA45AE INH; +METH10CO3 PO; +METO1TAB87 PO; +MIRT-10 PO; +OLAN15TA13 PO; +OLAN1TAB20 PO; +PANT20TA6 PO
[2023-01-04] MEDS ORDERED: DOXAZOSIN MESYLATE 1 MG TAB PO ONE (22:35)
[2023-01-04] MEDS ORDERED: OLANZapine 10 MG TAB PO ONE (22:35)
[2023-01-04] MEDS ORDERED: MIRTAZAPINE 15 MG TAB PO ONE (22:35)
[2023-01-05] MEDS ORDERED: ACETAMINOPHEN 325 MG TAB PO ONE (01:20)
[2023-01-05] MEDS ORDERED: BENZ0.5T23 PO (08:47)
[2023-01-05] MEDS ORDERED: PROP20TA72 PO (08:47)
[2023-01-05] MEDS ORDERED: OLAN20TA14 PO (08:47)
[2023-01-05] MEDS ORDERED: MIRT-11 PO (08:47)
[2023-01-05] MEDS ORDERED: HYDR50TA70 PO (08:47)
[2023-01-05] MEDS ORDERED: DOXE100CA PO (08:47)
[2023-01-05] MEDS ORDERED: PANT40TA29 PO (08:47)
[2023-01-05] MEDS ORDERED: DOXA1TAB41 PO (08:47)
[2023-01-05] MEDS ORDERED: CLON-412 PO (08:47)
[2023-01-05] MEDS ORDERED: FLON1SPR NARES (08:51)
[2023-01-05] MEDS ORDERED: HOME MED LIST COMPLETE! XX SCH (08:55)
[2023-01-05] MEDS ORDERED: PROPRANOLOL 20 MG TAB PO SCH (09:00)
[2023-01-05] MEDS ORDERED: METOPROLOL TART 25 MG TABLET PO SCH (09:00)
[2023-01-05] MEDS ORDERED: CLONI1TA PO (09:03)
[2023-01-05] MEDS ORDERED: hydrOXYzine 50 MG TAB PO PRN (09:15)
[2023-01-05] MEDS ORDERED: cloNIDine 0.1MG TABLET PO PRN (09:15)
[2023-01-05] MEDS ORDERED: LEVALBUTEROL HFA 45MCG/ACT 15GM INHALER INH PRN ×2 (09:15→09:43)
[2023-01-05] MEDS ORDERED: BENZTROPINE 0.5 MG TAB PO PRN (09:15)
[2023-01-05] MEDS ORDERED: FLUTICASONE PROP 0.05% NASAL SPRAY 16 GM (FLONASE) NARES PRN (09:15)
[2023-01-05 12:31] VITALS: BP 123/82
[2023-01-05] MEDS ORDERED: diphenhydrAMINE 25MG CAP PO SCH (21:00)
[2023-01-05] MEDS ORDERED: DOXEPIN 25 MG CAP PO SCH (21:00)
[2023-01-05] MEDS ORDERED: OLANZapine 10 MG TAB PO SCH (21:00)
[2023-01-05] MEDS ORDERED: MIRTAZAPINE 15 MG TAB PO SCH (21:00)
[2023-01-05] MEDS ORDERED: DOXAZOSIN MESYLATE 1 MG TAB PO SCH (21:00)
[2023-01-06] MEDS ORDERED: PANTOPRAZOLE 40MG TAB (PROTONIX) PO SCH (09:00)
== END 2023-01-05 12:43 | disposition home or self-care (01) ==
LOC: M ED 19:27
DX: F19.10 Other psychoactive substance abuse, uncomplicated (principal); I10 Essential (primary) hypertension; F41.9 Anxiety disorder, unspecified; F32.9 Major depressive disorder, single episode, unspecified; M41.9 Scoliosis, unspecified; F17.200 Nicotine dependence, unspecified, uncomplicated; Z81.8 Family history of other mental and behavioral disorders; Z79.899 Other long term (current) drug therapy

== ENCOUNTER 2023-02-21 11:30 | Emergency (ER) | payer OTHER ==
[~2023-02-21] VITALS: Ht 188 cm; Wt 102.0 kg
[~2023-02-21 11:30] MED LIST changes: +BENZ0.5T2 PO; -BENZ0.5T23 PO; +CLONI1TA PO; +DOXA1TAB41 PO; +FLON1SPR NARES; +FLUT50SP17 NARES; -FLUTISP NARES; +MIRT-11 PO; +OLAN20TA14 PO; +PANT40TA29 PO; +PROP20TA72 PO
[2023-02-21] MEDS ORDERED: LEVA45AE INH (13:25)
[2023-02-21 13:53] VITALS: BP 116/77
== END 2023-02-21 13:56 | disposition home or self-care (01) ==
LOC: M ED 11:30
DX: R06.02 Shortness of breath (principal); I10 Essential (primary) hypertension; N18.9 Chronic kidney disease, unspecified; F41.9 Anxiety disorder, unspecified; F31.9 Bipolar disorder, unspecified; F19.10 Other psychoactive substance abuse, uncomplicated; Z87.891 Personal history of nicotine dependence; Z79.899 Other long term (current) drug therapy

== ENCOUNTER → 2025-10-08 | Outpatient (CLI) | payer BC, OTHER ==
[~2025-10-08] MED LIST changes: +DEPA250T PO; -DEPA250T2 PO; -FLUT50SP17 NARES; +FLUTISP NARES; -OLAN15TA13 PO; +OLAN15TA69 PO; -OLAN20TA14 PO; +OLAN20TA53 PO
[2025-10-08 18:38] LABS: BASO # 0.0 10^3/uL (0.0-0.2); BASO % 0.6 % (0.0-1.0); EOS # 0.3 10^3/uL (0.0-0.5); EOS % 3.9 % (0.0-3.0); LYMPH # 1.8 10^3/uL (1.5-5.0); LYMPH % 26.7 % (24.0-44.0); MONO # 0.7 10^3/uL (0.0-0.8); MONO % 10.7 % (2.0-8.0); NEUTROPHILS # 3.9 10^3/uL (1.5-8.5); NEUTROPHILS % 58.0 % (36.0-66.0); PLATELET COUNT, AUTOMATED 249 10^3/uL (150-450)
[2025-10-08 18:43] LABS: ALT/SGPT 16 U/L (7.0-40); AST/SGOT 15 U/L (<34); C REACTIVE PROTEIN QUANTITATIV < 0.50 MG/DL (<1.0); CALCIUM LEVEL 9.1 MG/DL (8.5-10.1); CARBON DIOXIDE LEVEL 31 MMOL/L (20-31); CHLORIDE LEVEL 105 MMOL/L (98-107); CREATININE FOR GFR 0.81 MG/DL (0.70-1.30); GLOMERULAR FILTRATION RATE > 90.0 (>60); IRON (FE) 60 UG/DL (65-175); MAGNESIUM LEVEL 1.9 MG/DL (1.8-2.4); PERCENT SATURATION 21.1 % (19.7-50.0); PHOSPHORUS LEVEL 2.8 MG/DL (2.5-4.9); POTASSIUM SERUM 4.0 MMOL/L (3.5-5.1); SODIUM LEVEL 142 MMOL/L (136-145); TOTAL 25(OH) VITAMIN D 31.6 NG/ML (20.0-100.0); VITAMIN B12 LEVEL 352 PG/ML (211-911)
[2025-10-08 19:12] LABS: ESTIMATED AVERAGE GLUCOSE 94.0 MG/DL (60-110)
== END ==
LOC: M WUC 13:22
DX: R63.4 Abnormal weight loss (principal)

== ENCOUNTER 2025-10-20 08:27 | Emergency (ER) | payer BC, OTHER ==
[~2025-10-20] VITALS: Ht 188 cm; Wt 72.7 kg
[2025-10-20 08:36] VITALS: TEMP 96.8; O2SAT 97
[2025-10-20 09:25] LABS: BASO # 0.0 10^3/uL (0.0-0.2); BASO % 0.5 % (0.0-1.0); EOS # 0.1 10^3/uL (0.0-0.5); EOS % 1.3 % (0.0-3.0); LYMPH # 2.3 10^3/uL (1.5-5.0); LYMPH % 38.4 % (24.0-44.0); MONO # 0.6 10^3/uL (0.0-0.8); MONO % 9.3 % (2.0-8.0); NEUTROPHILS # 3.0 10^3/uL (1.5-8.5); NEUTROPHILS % 50.5 % (36.0-66.0); PLATELET COUNT, AUTOMATED 256 10^3/uL (150-450)
[2025-10-20 09:40] VITALS: BP 112/68
[2025-10-20 09:53] LABS: ALT/SGPT 17 U/L (7.0-40); AST/SGOT 21 U/L (<34); CALCIUM LEVEL 9.6 MG/DL (8.5-10.1); CARBON DIOXIDE LEVEL 29 MMOL/L (20-31); CHLORIDE LEVEL 102 MMOL/L (98-107); CREATININE FOR GFR 1.05 MG/DL (0.70-1.30); GLOMERULAR FILTRATION RATE > 90.0 (>60); POTASSIUM SERUM 3.9 MMOL/L (3.5-5.1); SODIUM LEVEL 139 MMOL/L (136-145)
[2025-10-20] MEDS: NS (Normal Saline) 0.9% 1,000 ML IV ONE (10:00)
[2025-10-20 10:19] LABS: MAGNESIUM LEVEL 1.8 MG/DL (1.8-2.4)
[2025-10-20 10:23] LABS: FREE T4 1.25 NG/DL (0.89-1.76); VITAMIN B12 LEVEL 865 PG/ML (211-911)
[2025-10-20] MEDS ORDERED: ISOVUE-370 76% 100 ML VIAL As Ordered ONE (10:48)
[2025-10-20 11:14] LABS: KETONE, URINE AUTO RFX TRACE mg/dL (NEGATIVE); LEUKOCYTE ESTERASE UR AUTO RFX NEGATIVE (NEGATIVE); MUCUS, URINE RFX MODERATE (NEGATIVE); NITRITE, URINE AUTO RFX NEGATIVE (NEGATIVE); RBC, URINE AUTO RFX 34 /HPF (0-3); SQUAM EPITHELIAL CELL UR AURFX 0 /HPF (0-6); WBC, URINE AUTO RFX 26 /HPF (0-3)
[2025-10-20 11:26] LABS: IRON (FE) 56.0 UG/DL (65-175); PERCENT SATURATION 20.7 % (19.7-50.0)
== END 2025-10-20 12:54 | disposition home or self-care (01) ==
LOC: M ED 08:27
DX: R53.1 Weakness (principal); Z79.899 Other long term (current) drug therapy
CPT/HCPCS: 70450; 71045; 74177; 80053; 81001; 82607; 82728; 82746; 83550; 83735; 83930; 84439; 84443; 85025; 87086; 96360; 96361; 99284; Q9967